=== PATIENT | female | born 1950 | race African-American/Black ===

== ENCOUNTER 2023-04-27 21:34 | Inpatient (IN) | payer MEDICARE, MEDICAID ==
[~2023-04-27] VITALS: Ht 172.7 cm; Wt 110.2 kg
[2023-04-27] MEDS ORDERED: IV NORMAL SALINE 1000 ML BAG IV ONE (22:30)
[2023-04-27] MEDS ORDERED: VANCOMYCIN IV 1,000 MG in IV DEXTROSE 5% 250 ML IV ONE (22:30)
[2023-04-27 23:07] LABS: ETHANOL < 3 MG/DL (0-10)
[2023-04-27 23:10] LABS: AMMONIA < 10 umol/L (11-32)
[2023-04-27 23:11] LABS: BASOPHILS # (AUTO) 0.3 K/UL (0.0-0.2); BASOPHILS % (AUTO) 0.8 % (0.0-2.0); HEMATOCRIT 33.3 % (31.2-41.9); HEMOGLOBIN 10.7 g/dL (10.9-14.3); LYMPHOCYTES # (AUTO) 0.6 K/uL (0.8-4.8); LYMPHOCYTES % (AUTO) 1.7 % (20.5-51.5); MEAN CORPUSCULAR HGB CONC 32 g/dL (32.3-35.6); MEAN CORPUSCULAR VOLUME 74.5 fL (75.5-95.3); MONOCYTES # (AUTO) 0.5 K/uL (0.1-1.30); MONOCYTES % (AUTO) 1.7 % (0.0-11.0); NEUTROPHILS # (AUTO) 30.8 K/uL (1.8-8.9); NEUTROPHILS % (AUTO) 95.8 % (38.5-71.5); PLATELET COUNT (AUTO) 478 K/uL (179-408); RED BLOOD CELL COUNT(AUTO) 4.47 MIL/uL (3.63-4.92); RED CELL DISTRIBUTION WIDTH 17.8 % (12.3-17.7)
[2023-04-27 23:14] LABS: DIFFERENTIAL COMMENT 1; WHITE BLOOD COUNT (AUTO) 32.2 K/uL (3.8-11.8)
[2023-04-27 23:16] LABS: CALCIUM 8.9 mg/dL (8.5-10.1); CARBON DIOXIDE 17 mmol/L (21-32); CHLORIDE 102 mmol/L (98-107); CREATININE 1.7 mg/dL (0.6-1.3); GLUCOSE 138 mg/dL (74-106); POTASSIUM 4.5 mmol/L (3.5-5.1); SODIUM SERUM 133 mmol/L (136-145); UREA NITROGEN, BLOOD 21 mg/dL (7-18)
[2023-04-27 23:21] LABS: THYROID STIMULATING HORMONE 0.566 mIU/mL (0.358-3.740)
[2023-04-27 23:24] LABS: ALANINE AMINOTRANSFERASE 8 U/L (14-59); ALBUMIN 2.4 g/dL (3.4-5.0); ALKALINE PHOSPHATASE 89 U/L (50-136); ASPARTATE AMINOTRANSFERASE 15 U/L (15-37); BILIRUBIN,DIRECT 0.3 mg/dL (0.0-0.2); BILIRUBIN,TOTAL 0.7 mg/dL (0.2-1.0); TOTAL PROTEIN, SERUM 8.3 g/dL (6.4-8.2)
[2023-04-27 23:25] LABS: ACETAMINOPHEN < 2.0 ug/mL (10-30)
[2023-04-27] MEDS ORDERED: VANCOMYCIN IV 200 ML ONE (23:38)
[2023-04-28] MEDS ORDERED: IV NORMAL SALINE 1000 ML BAG IV ONE (01:00)
[2023-04-28] MEDS ORDERED: CEFTRIAXONE 1 G in IV DEXTROSE 5% 50 ML IV ONE (01:00)
[2023-04-28 01:13] LABS: BAND % (MANUAL) 3 % (0-10); LYMPHOCYTES % (MANUAL) 5 % (20-40); MONOCYTES % (MANUAL) 2 % (2-10); NEUTROPHILS % (MANUAL) 90 % (42-75)
[2023-04-28 01:14] LABS: ANISOCYTOSIS 1+; PLATELET ESTIMATE INCREASED
[2023-04-28] MEDS ORDERED: ONDANSETRON 4 MG/2 ML VIAL IV PRN (01:15)
[2023-04-28] MEDS ORDERED: hydrALAZINE HCL 20 MG/1 ML VIAL IV PRN (01:15)
[2023-04-28 01:49] LABS: *BLOOD, URINE 2+ (NEGATIVE); *COLOR,URINE YELLOW (YELLOW); *KETONES,URINE 2+ (NEGATIVE); *PROTEIN,URINE 2+ (NEGATIVE); LEUKOCYTE ESTERASE ,URINE 1+ (NEGATIVE); NITRITE, URINE NEGATIVE (NEGATIVE); PH,URINE 5.5 (5.0-8.0); UGLUCOSE NEGATIVE (NEGATIVE)
[2023-04-28] MEDS ORDERED: CEFTRIAXONE /D5W 50ML IVPB **ER PYXIS IV ONE (02:09)
[2023-04-28 02:12] LABS: *BILIRUBIN,URIN 2+ (NEGATIVE); *CLARITY,URINE HAZY (CLEAR)
[2023-04-28 02:14] LABS: BACTERIA,URINE FEW /HPF (NONE SEEN); SQUAMOUS EPITHELIAL CELL,UR FEW /HPF (NONE SEEN)
[2023-04-28 02:18] LABS: *AMPHETAMINE, URINE NEGATIVE (NEGATIVE); *BARBITURATE, URINE NEGATIVE (NEGATIVE); *BENZODIAZEPINE, URINE NEGATIVE (NEGATIVE); *CANNABINOID, URINE NEGATIVE (NEGATIVE); *COCCAINE, URINE NEGATIVE (NEGATIVE); *OPIATE, URINE NEGATIVE (NEGATIVE); *PHENCYCLIDINE SCREEN,URINE NEGATIVE (NEGATIVE)
[2023-04-28 02:19] LABS: FENTANYL, URINE NEGATIVE (NEGATIVE)
[2023-04-28] MEDS: IV NS 1000 ML 1,000 ML IV SCH ×3 (03:00→22:00)
[2023-04-28 04:00] VITALS: BP 129/85; TEMP 98.4; O2SAT 94
[2023-04-28] MEDS: ACETAMINOPHEN 325 MG TABLET PO PRN (08:38)
[2023-04-28] MEDS: HEPARIN SODIUM,PORCINE 5,000 UNITS/ML VIAL SQ SCH ×2 (08:39→20:54)
[2023-04-28] MEDS ORDERED: CEFEPIME HCL 2 G in IV DEXTROSE 5% 100 ML IV SCH (09:00)
[2023-04-28 09:04] LABS: CALCIUM 8.5 mg/dL (8.5-10.1); CARBON DIOXIDE 20 mmol/L (21-32); CHLORIDE 106 mmol/L (98-107); CREATININE 1.6 mg/dL (0.6-1.3); GLUCOSE 122 mg/dL (74-106); SODIUM SERUM 138 mmol/L (136-145); UREA NITROGEN, BLOOD 22 mg/dL (7-18)
[2023-04-28 10:10] LABS: VANCOMYCIN,RANDOM < 0.8 ug/mL (20.0-30.0)
[2023-04-28 10:33] LABS: BASOPHILS # (AUTO) 0.1 K/UL (0.0-0.2); BASOPHILS % (AUTO) 0.4 % (0.0-2.0); HEMATOCRIT 29.1 % (31.2-41.9); HEMOGLOBIN 9.4 g/dL (10.9-14.3); LYMPHOCYTES # (AUTO) 0.9 K/uL (0.8-4.8); LYMPHOCYTES % (AUTO) 3.9 % (20.5-51.5); MEAN CORPUSCULAR HEMOGLOBIN 23.9 uug (24.7-32.8); MEAN CORPUSCULAR HGB CONC 32 g/dL (32.3-35.6); MEAN CORPUSCULAR VOLUME 74.3 fL (75.5-95.3); MONOCYTES # (AUTO) 0.9 K/uL (0.1-1.30); NEUTROPHILS # (AUTO) 21.6 K/uL (1.8-8.9); NEUTROPHILS % (AUTO) 91.7 % (38.5-71.5); PLATELET COUNT (AUTO) 369 K/uL (179-408); RED BLOOD CELL COUNT(AUTO) 3.92 MIL/uL (3.63-4.92); RED CELL DISTRIBUTION WIDTH 18.1 % (12.3-17.7); WHITE BLOOD COUNT (AUTO) 23.5 K/uL (3.8-11.8)
[2023-04-28] MEDS ORDERED: REMEDY ESSENTIAL ZINC PASTE 113 GM TOP PRN (11:00)
[2023-04-28 11:22] LABS: DIFFERENTIAL COMMENT 1
[2023-04-28] MEDS: VITAMINS A AND D OINT 42 GM TUBE TP SCH (11:48)
[2023-04-28 11:58] VITALS: BP 98/53; TEMP 99; O2SAT 99
[2023-04-28] MEDS ORDERED: VANCOMYCIN IV 1,250 MG in IV DEXTROSE 5% 250 ML IV SCH (14:00)
[2023-04-28 15:54] VITALS: BP 127/64; TEMP 99.1; O2SAT 97
[2023-04-28 16:18] LABS: BAND % (MANUAL) 3 % (0-10)
[2023-04-28 16:19] LABS: MONOCYTES % (MANUAL) 3 % (2-10)
[2023-04-28 16:20] LABS: LYMPHOCYTES % (MANUAL) 6 % (20-40); NEUTROPHILS % (MANUAL) 88 % (42-75)
[2023-04-28 16:21] LABS: PLATELET ESTIMATE ADEQUATE
[2023-04-28] MEDS: CLOTRIMAZOLE 1% CREAM 30 GM TUBE TOP SCH (17:09)
[2023-04-28 19:25] VITALS: BP 117/55; TEMP 97.4; O2SAT 98
[2023-04-28] MEDS: NYSTATIN POWDER 15 GM BOTTLE TOP SCH (20:54)
[2023-04-28] MEDS: REMEDY ESSENTIAL ZINC PASTE 113 GM TOP SCH (20:55)
[2023-04-28] MEDS: MORPHINE SULFATE 2 MG/1 ML DISP.SYRIN IVP PRN (20:59)
[2023-04-29 00:10] VITALS: BP 102/54; TEMP 97.6; O2SAT 92
[2023-04-29] MEDS: IV NS 1000 ML 1,000 ML IV SCH ×2 (02:08→15:16)
[2023-04-29] MEDS: MORPHINE SULFATE 2 MG/1 ML DISP.SYRIN IVP PRN ×2 (04:04→20:11)
[2023-04-29 04:05] VITALS: BP 110/56; TEMP 98.3; O2SAT 94
[2023-04-29 06:14] LABS: BASOPHILS # (AUTO) 0.1 K/UL (0.0-0.2); BASOPHILS % (AUTO) 0.7 % (0.0-2.0); EOSINOPHILS # (AUTO) 0.1 K/uL (0.0-0.7); EOSINOPHILS % (AUTO) 0.4 % (0.0-7.0); HEMATOCRIT 26.1 % (31.2-41.9); HEMOGLOBIN 8.4 g/dL (10.9-14.3); LYMPHOCYTES # (AUTO) 1.1 K/uL (0.8-4.8); LYMPHOCYTES % (AUTO) 5.5 % (20.5-51.5); MEAN CORPUSCULAR HEMOGLOBIN 24.1 uug (24.7-32.8); MEAN CORPUSCULAR HGB CONC 32 g/dL (32.3-35.6); MEAN CORPUSCULAR VOLUME 74.6 fL (75.5-95.3); MONOCYTES # (AUTO) 0.9 K/uL (0.1-1.30); MONOCYTES % (AUTO) 4.7 % (0.0-11.0); NEUTROPHILS % (AUTO) 88.7 % (38.5-71.5); PLATELET COUNT (AUTO) 306 K/uL (179-408); WHITE BLOOD COUNT (AUTO) 19.1 K/uL (3.8-11.8)
[2023-04-29 06:17] LABS: DIFFERENTIAL COMMENT 1
[2023-04-29 06:25] LABS: BAND % (MANUAL) 2 % (0-10)
[2023-04-29 06:26] LABS: LYMPHOCYTES % (MANUAL) 6 % (20-40); MONOCYTES % (MANUAL) 4 % (2-10); NEUTROPHILS % (MANUAL) 88 % (42-75); PLATELET ESTIMATE ADEQUATE
[2023-04-29 06:47] LABS: ALBUMIN 1.6 g/dL (3.4-5.0); BILIRUBIN,TOTAL 0.2 mg/dL (0.2-1.0); CALCIUM 8.2 mg/dL (8.5-10.1); CREATININE 1.3 mg/dL (0.6-1.3); PHOSPHOROUS 2.6 mg/dL (2.5-4.9); POTASSIUM 4.1 mmol/L (3.5-5.1); TOTAL PROTEIN, SERUM 6.1 g/dL (6.4-8.2)
[2023-04-29 08:00] VITALS: BP 97/56; TEMP 97.5; O2SAT 94
[2023-04-29] MEDS: CEFEPIME HCL 2 G in IV DEXTROSE 5% 100 ML IV SCH (08:44)
[2023-04-29] MEDS: HEPARIN SODIUM,PORCINE 5,000 UNITS/ML VIAL SQ SCH ×2 (08:49→20:09)
[2023-04-29] MEDS: CLOTRIMAZOLE 1% CREAM 30 GM TUBE TOP SCH ×2 (08:54→17:35)
[2023-04-29] MEDS: REMEDY ESSENTIAL ZINC PASTE 113 GM TOP SCH ×2 (08:54→20:21)
[2023-04-29] MEDS: NYSTATIN POWDER 15 GM BOTTLE TOP SCH ×2 (08:54→20:21)
[2023-04-29] MEDS: VITAMINS A AND D OINT 42 GM TUBE TP SCH (08:54)
[2023-04-29] MEDS: SILVER SULFADIAZINE 1% CREAM 50 GM TP SCH (08:55)
[2023-04-29] MEDS: VANCOMYCIN IV 1,500 MG in IV DEXTROSE 5% 500 ML IV SCH (09:13)
[2023-04-29 11:38] VITALS: BP 96/51; TEMP 97.8; O2SAT 95
[2023-04-29 15:29] VITALS: BP 104/59; TEMP 97.8; O2SAT 100
[2023-04-29 19:30] VITALS: BP 95/54; TEMP 97.3; O2SAT 100
[2023-04-30 00:22] VITALS: BP 125/49; TEMP 98; O2SAT 100
[2023-04-30 01:41] VITALS: BP 120/50; TEMP 98.2; O2SAT 100
[2023-04-30 05:48] VITALS: BP 89/53; TEMP 98; O2SAT 100
[2023-04-30] MEDS: VANCOMYCIN IV 1,500 MG in IV DEXTROSE 5% 500 ML IV SCH (06:49)
[2023-04-30 08:30] VITALS: BP 108/57; TEMP 98; O2SAT 100
[2023-04-30] MEDS: HEPARIN SODIUM,PORCINE 5,000 UNITS/ML VIAL SQ SCH ×2 (08:37→20:56)
[2023-04-30] MEDS: NYSTATIN POWDER 15 GM BOTTLE TOP SCH ×2 (08:39→21:41)
[2023-04-30] MEDS: CLOTRIMAZOLE 1% CREAM 30 GM TUBE TOP SCH ×2 (08:39→17:05)
[2023-04-30] MEDS: CEFEPIME HCL 2 G in IV DEXTROSE 5% 100 ML IV SCH (08:39)
[2023-04-30] MEDS: SILVER SULFADIAZINE 1% CREAM 50 GM TP SCH (08:39)
[2023-04-30] MEDS: VITAMINS A AND D OINT 42 GM TUBE TP SCH (08:40)
[2023-04-30] MEDS: REMEDY ESSENTIAL ZINC PASTE 113 GM TOP SCH ×2 (08:56→21:41)
[2023-04-30 10:17] LABS: POTASSIUM 3.8 mmol/L (3.5-5.1)
[2023-04-30 10:31] LABS: BASOPHILS # (AUTO) 0.1 K/UL (0.0-0.2); BASOPHILS % (AUTO) 0.9 % (0.0-2.0); EOSINOPHILS # (AUTO) 0.1 K/uL (0.0-0.7); EOSINOPHILS % (AUTO) 1.3 % (0.0-7.0); HEMATOCRIT 22.7 % (31.2-41.9); LYMPHOCYTES # (AUTO) 0.9 K/uL (0.8-4.8); LYMPHOCYTES % (AUTO) 9.9 % (20.5-51.5); MEAN CORPUSCULAR HEMOGLOBIN 24.2 uug (24.7-32.8); MEAN CORPUSCULAR HGB CONC 31 g/dL (32.3-35.6); MEAN CORPUSCULAR VOLUME 77.3 fL (75.5-95.3); MONOCYTES # (AUTO) 0.4 K/uL (0.1-1.30); MONOCYTES % (AUTO) 4.6 % (0.0-11.0); NEUTROPHILS # (AUTO) 7.3 K/uL (1.8-8.9); NEUTROPHILS % (AUTO) 83.3 % (38.5-71.5); PLATELET COUNT (AUTO) 267 K/uL (179-408); RED BLOOD CELL COUNT(AUTO) 2.94 MIL/uL (3.63-4.92); WHITE BLOOD COUNT (AUTO) 8.7 K/uL (3.8-11.8)
[2023-04-30 10:33] LABS: DIFFERENTIAL COMMENT 1; HEMOGLOBIN 7.1 g/dL (10.9-14.3)
[2023-04-30 11:56] VITALS: BP 109/63; TEMP 97.7; O2SAT 98
[2023-04-30 16:00] VITALS: BP 111/59; TEMP 97.6; O2SAT 98
[2023-04-30 19:17] LABS: HEMATOCRIT 28.1 % (31.2-41.9); HEMOGLOBIN 9.1 g/dL (10.9-14.3)
[2023-04-30] MEDS ORDERED: VANCOMYCIN IV 1,500 MG in IV DEXTROSE 5% 500 ML IV SCH (21:00)
[2023-04-30] MEDS ORDERED: VANCOMYCIN 1000 MG VIAL ONE (21:09)
[2023-04-30] MEDS ORDERED: VANCOMYCIN HCL 500 MG VIAL ONE (21:10)
[2023-05-01 08:00] VITALS: BP 101/62; TEMP 98.2; O2SAT 97
[2023-05-01 08:39] LABS: MAGNESIUM 1.9 mg/dL (1.8-2.4); PHOSPHOROUS 1.9 mg/dL (2.5-4.9); POTASSIUM 4.4 mmol/L (3.5-5.1)
[2023-05-01 08:40] LABS: BASOPHILS # (AUTO) 0.1 K/UL (0.0-0.2); BASOPHILS % (AUTO) 0.9 % (0.0-2.0); DIFFERENTIAL COMMENT 0; EOSINOPHILS # (AUTO) 0.1 K/uL (0.0-0.7); EOSINOPHILS % (AUTO) 1.6 % (0.0-7.0); HEMATOCRIT 25.4 % (31.2-41.9); HEMOGLOBIN 8.3 g/dL (10.9-14.3); LYMPHOCYTES # (AUTO) 1.5 K/uL (0.8-4.8); LYMPHOCYTES % (AUTO) 17.5 % (20.5-51.5); MEAN CORPUSCULAR HEMOGLOBIN 24.1 uug (24.7-32.8); MEAN CORPUSCULAR HGB CONC 33 g/dL (32.3-35.6); MEAN CORPUSCULAR VOLUME 73.7 fL (75.5-95.3); MONOCYTES # (AUTO) 0.5 K/uL (0.1-1.30); MONOCYTES % (AUTO) 6.1 % (0.0-11.0); NEUTROPHILS # (AUTO) 6.4 K/uL (1.8-8.9); NEUTROPHILS % (AUTO) 73.9 % (38.5-71.5); PLATELET COUNT (AUTO) 299 K/uL (179-408); RED BLOOD CELL COUNT(AUTO) 3.44 MIL/uL (3.63-4.92); WHITE BLOOD COUNT (AUTO) 8.6 K/uL (3.8-11.8)
[2023-05-01] MEDS: CEFEPIME HCL 2 G in IV DEXTROSE 5% 100 ML IV SCH (09:17)
[2023-05-01] MEDS: CLOTRIMAZOLE 1% CREAM 30 GM TUBE TOP SCH ×2 (09:18→16:33)
[2023-05-01] MEDS: NYSTATIN POWDER 15 GM BOTTLE TOP SCH ×2 (09:19→21:29)
[2023-05-01] MEDS: SILVER SULFADIAZINE 1% CREAM 50 GM TP SCH (09:19)
[2023-05-01] MEDS: REMEDY ESSENTIAL ZINC PASTE 113 GM TOP SCH ×2 (09:19→21:29)
[2023-05-01] MEDS: VITAMINS A AND D OINT 42 GM TUBE TP SCH (09:20)
[2023-05-01] MEDS: ACETAMINOPHEN 325 MG TABLET PO PRN ×2 (09:20→21:28)
[2023-05-01] MEDS: HEPARIN SODIUM,PORCINE 5,000 UNITS/ML VIAL SQ SCH ×2 (09:39→21:32)
[2023-05-01 16:00] VITALS: BP 100/60; TEMP 98; O2SAT 98
[2023-05-01] MEDS ORDERED: NEUTRA PHOS PACKET PO ONE (16:00)
[2023-05-01] MEDS ORDERED: CIPR500T5 PO (19:33)
[2023-05-01 20:00] VITALS: BP 98/54; TEMP 97.8
[2023-05-01] MEDS ORDERED: CIPROFLOXACIN HCL 250 MG TABLET ONE (21:37)
[2023-05-01] MEDS: CIPROFLOXACIN HCL 250 MG TABLET PO SCH (21:50)
[2023-05-02 08:36] LABS: BASOPHILS # (AUTO) 0.1 K/UL (0.0-0.2); DIFFERENTIAL COMMENT 0; EOSINOPHILS # (AUTO) 0.2 K/uL (0.0-0.7); HEMOGLOBIN 8.8 g/dL (10.9-14.3); LYMPHOCYTES # (AUTO) 1.7 K/uL (0.8-4.8); MONOCYTES # (AUTO) 0.6 K/uL (0.1-1.30)
[2023-05-02 08:40] LABS: CALCIUM 8.4 mg/dL (8.5-10.1); CREATININE 0.9 mg/dL (0.6-1.3); PHOSPHOROUS 2.5 mg/dL (2.5-4.9); POTASSIUM 4.4 mmol/L (3.5-5.1); VANCOMYCIN,RANDOM 19.4 ug/mL (20.0-30.0)
[2023-05-02 08:45] LABS: EOSINOPHILS % (AUTO) 2.4 % (0.0-7.0); HEMATOCRIT 27.1 % (31.2-41.9); LYMPHOCYTES % (AUTO) 20.3 % (20.5-51.5); MEAN CORPUSCULAR HGB CONC 33 g/dL (32.3-35.6); MEAN CORPUSCULAR VOLUME 73.5 fL (75.5-95.3); MONOCYTES % (AUTO) 7.2 % (0.0-11.0); NEUTROPHILS # (AUTO) 5.6 K/uL (1.8-8.9); NEUTROPHILS % (AUTO) 69.1 % (38.5-71.5); PLATELET COUNT (AUTO) 342 K/uL (179-408); RED BLOOD CELL COUNT(AUTO) 3.68 MIL/uL (3.63-4.92); RED CELL DISTRIBUTION WIDTH 18.4 % (12.3-17.7); WHITE BLOOD COUNT (AUTO) 8.2 K/uL (3.8-11.8)
[2023-05-02] MEDS: CIPROFLOXACIN HCL 250 MG TABLET PO SCH (08:51)
[2023-05-02] MEDS: HEPARIN SODIUM,PORCINE 5,000 UNITS/ML VIAL SQ SCH (08:54)
[2023-05-02] MEDS: REMEDY ESSENTIAL ZINC PASTE 113 GM TOP SCH (09:02)
[2023-05-02] MEDS: NYSTATIN POWDER 15 GM BOTTLE TOP SCH (09:02)
[2023-05-02] MEDS: CLOTRIMAZOLE 1% CREAM 30 GM TUBE TOP SCH ×2 (09:02→17:31)
[2023-05-02] MEDS: SILVER SULFADIAZINE 1% CREAM 50 GM TP SCH (09:02)
[2023-05-02] MEDS: VITAMINS A AND D OINT 42 GM TUBE TP SCH (09:02)
[2023-05-02 11:19] VITALS: BP 110/59; TEMP 97.7; O2SAT 100
[2023-05-02 15:21] VITALS: BP 110/59; TEMP 97.6; O2SAT 98
[2023-05-02 19:55] VITALS: BP 125/78; TEMP 97.6; O2SAT 97
[2023-05-02] MEDS: MEROPENEM 1 G in IV NORMAL SALINE 100 ML IV SCH (23:46)
[2023-05-03] MEDS: HEPARIN SODIUM,PORCINE 5,000 UNITS/ML VIAL SQ SCH ×2 (00:10→09:34)
[2023-05-03] MEDS: NYSTATIN POWDER 15 GM BOTTLE TOP SCH ×2 (00:12→09:37)
[2023-05-03] MEDS: REMEDY ESSENTIAL ZINC PASTE 113 GM TOP SCH ×2 (00:12→09:38)
[2023-05-03 06:21] VITALS: BP 113/56; TEMP 98.8; O2SAT 95
[2023-05-03] MEDS: MEROPENEM 1 G in IV NORMAL SALINE 100 ML IV SCH (09:36)
[2023-05-03] MEDS: CLOTRIMAZOLE 1% CREAM 30 GM TUBE TOP SCH (09:37)
[2023-05-03] MEDS: SILVER SULFADIAZINE 1% CREAM 50 GM TP SCH (09:38)
[2023-05-03] MEDS: VITAMINS A AND D OINT 42 GM TUBE TP SCH (09:39)
[2023-05-03] MEDS ORDERED: CIPR-262 PO (10:54)
[2023-05-03] MEDS ORDERED: ERTA1VIA4 IV (11:03)
[2023-05-03 11:39] VITALS: BP 129/73; TEMP 97.7; O2SAT 97
[2023-05-03 15:38] VITALS: BP 118/73; TEMP 98; O2SAT 98
== END 2023-05-03 17:11 | DRG 871 ==
LOC: ER 21:35 → TELE3 04-28 01:06 → MEDSURG3 04-29 07:55 → MED 04-29 21:41 → MEDSURG3 05-01 18:15 → MED 05-02 19:16
PROVIDERS: ADMIT Internal Medicine; ATTEND Nurse Practitioner Acute Care
DX: A41.50 Gram-negative sepsis, unspecified (principal); G93.41 Metabolic encephalopathy; N17.0 Acute kidney failure with tubular necrosis; N39.0 Urinary tract infection, site not specified; E44.0 Moderate protein-calorie malnutrition; Z16.24 Resistance to multiple antibiotics; E87.1 Hypo-osmolality and hyponatremia; I87.313 Chronic venous hypertension (idiopathic) with ulcer of bilateral lower extremity; L97.222 Non-pressure chronic ulcer of left calf with fat layer exposed; L97.212 Non-pressure chronic ulcer of right calf with fat layer exposed; E86.0 Dehydration; E66.01 Morbid (severe) obesity due to excess calories; Z68.37 Body mass index [BMI] 37.0-37.9, adult; E87.8 Other disorders of electrolyte and fluid balance, not elsewhere classified; E88.09 Other disorders of plasma-protein metabolism, not elsewhere classified; I89.0 Lymphedema, not elsewhere classified; Z74.09 Other reduced mobility; D50.9 Iron deficiency anemia, unspecified; Z90.710 Acquired absence of both cervix and uterus; R32 Unspecified urinary incontinence; R00.0 Tachycardia, unspecified
CPT/HCPCS: 36415; 70030-TC; 70450; 71045; 83550; 83605; 83735; 84100; 84443; 84484; 85018; 85025; 85730; 87040; 93005; 93307; A4606; A4663; G0378; G0480; J0692; J0696; J1644; J2185; J2270; J3370; J7040; J7050; J7060

== ENCOUNTER 2024-10-06 11:15 | Inpatient (IN) | payer MEDICARE, OTHER ==
[~2024-10-06] VITALS: Ht 167.6 cm; Wt 95.7 kg
[~2024-10-06 11:15] MED LIST: ERTA1VIA4 IV
[2024-10-06] MEDS: IV NORMAL SALINE 1000 ML BAG IV ONE (12:05)
[2024-10-06 13:10] LABS: BASOPHILS % (AUTO) 0.1 % (0.0-2.0); EOSINOPHILS # (AUTO) 0.7 K/uL (0.0-0.7); EOSINOPHILS % (AUTO) 2.1 % (0.0-7.0); HEMATOCRIT 33.4 % (31.2-41.9); HEMOGLOBIN 10.7 g/dL (10.9-14.3); LYMPHOCYTES # (AUTO) 6.2 K/uL (0.8-4.8); LYMPHOCYTES % (AUTO) 18.4 % (20.5-51.5); MEAN CORPUSCULAR HEMOGLOBIN 26.7 uug (24.7-32.8); MEAN CORPUSCULAR HGB CONC 32 g/dL (32.3-35.6); MEAN CORPUSCULAR VOLUME 83.2 fL (75.5-95.3); MONOCYTES # (AUTO) 0.5 K/uL (0.1-1.30); MONOCYTES % (AUTO) 1.4 % (0.0-11.0); NEUTROPHILS # (AUTO) 26.2 K/uL (1.8-8.9); PLATELET COUNT (AUTO) 216 K/uL (179-408); RED BLOOD CELL COUNT(AUTO) 4.02 MIL/uL (3.63-4.92); RED CELL DISTRIBUTION WIDTH 20.2 % (12.3-17.7)
[2024-10-06 13:20] LABS: AMMONIA 21 umol/L (11-32)
[2024-10-06 13:21] LABS: COHb 0.3 % (0.5-1.5)
[2024-10-06 13:25] LABS: ALANINE AMINOTRANSFERASE 8 U/L (14-59); ALKALINE PHOSPHATASE 252 U/L (50-136); ASPARTATE AMINOTRANSFERASE 38 U/L (15-37); BILIRUBIN,DIRECT 0.6 mg/dL (0.0-0.2); BILIRUBIN,TOTAL 1.3 mg/dL (0.2-1.0); CALCIUM 8.5 mg/dL (8.5-10.1); CARBON DIOXIDE 18 mmol/L (21-32); CHLORIDE 104 mmol/L (98-107); CREATININE 2.6 mg/dL (0.6-1.3); GLUCOSE 97 mg/dL (74-106); LIPASE < 10 U/L (16-77); POTASSIUM 4.2 mmol/L (3.5-5.1); SODIUM SERUM 137 mmol/L (136-145); TOTAL PROTEIN, SERUM 5.8 g/dL (6.4-8.2); UREA NITROGEN, BLOOD 26 mg/dL (7-18)
[2024-10-06 13:33] LABS: ALBUMIN 1.2 g/dL (3.4-5.0); DIFFERENTIAL COMMENT 1; WHITE BLOOD COUNT (AUTO) 33.7 K/uL (3.8-11.8)
[2024-10-06] MEDS ORDERED: PIPERACILLIN/TAZOBACTAM/D5W 50 ML IV ONE ×2 (13:37→20:37)
[2024-10-06] MEDS: PIPERACILLIN SODIUM/TAZOBACTAM 3.375 G in IV DEXTROSE 5% 50 ML IV ONE (13:41)
[2024-10-06] MEDS: IV NS 1000 ML 1,000 ML IV ONE ×3 (13:55→16:47)
[2024-10-06] MEDS: VANCOMYCIN IV 750 MG in IV DEXTROSE 5% 150 ML IV ONE (13:55)
[2024-10-06 14:09] LABS: BAND % (MANUAL) 1 % (0-10); LYMPHOCYTES % (MANUAL) 1 % (20-40); MONOCYTES % (MANUAL) 3 % (2-10); NEUTROPHILS % (MANUAL) 95 % (42-75)
[2024-10-06 14:10] LABS: ANISOCYTOSIS 2+; PLATELET ESTIMATE ADEQUATE
[2024-10-06] MEDS ORDERED: LIDO30AD10 TD (14:13)
[2024-10-06] MEDS ORDERED: ZINC SULFATE PO (14:13)
[2024-10-06] MEDS ORDERED: FAMO20TA8 PO (14:13)
[2024-10-06] MEDS ORDERED: BETADINE TOP (14:13)
[2024-10-06] MEDS ORDERED: MULT-213 PO (14:13)
[2024-10-06] MEDS ORDERED: FERR-56 PO (14:13)
[2024-10-06] MEDS ORDERED: SIME80TA15 PO (14:13)
[2024-10-06] MEDS ORDERED: POLY119P2 PO (14:13)
[2024-10-06] MEDS ORDERED: ASCO500C18 PO (14:13)
[2024-10-06] MEDS ORDERED: BENZ-13 PO (14:13)
[2024-10-06] MEDS ORDERED: HYDR170P TP (14:13)
[2024-10-06] MEDS ORDERED: MAGN400O6 PO (14:13)
[2024-10-06] MEDS ORDERED: IPRA3AMP23 NEB (14:13)
[2024-10-06] MEDS ORDERED: MIRT-121 PO (14:13)
[2024-10-06] MEDS ORDERED: ACET-2154 PO (14:13)
[2024-10-06] MEDS ORDERED: VOLTAREN GEL 1% TOP (14:13)
[2024-10-06] MEDS ORDERED: LOPE2TAB25 PO (14:13)
[2024-10-06] MEDS ORDERED: ACET-2605 PO (14:13)
[2024-10-06] MEDS ORDERED: NA P133E RC (14:13)
[2024-10-06] MEDS ORDERED: GUAI-1189 PO (14:13)
[2024-10-06] MEDS ORDERED: HYDR-4209 PO (14:13)
[2024-10-06] MEDS ORDERED: ETOMIDATE 20 MG/10 ML VIAL ONE (17:00)
[2024-10-06] MEDS ORDERED: NOREPINEPHRINE 8MG/NS 250ML 250 ML IV ONE (17:22)
[2024-10-06] MEDS ORDERED: MAGNESIUM HYDROXIDE 30 ML LIQUID UDC PO PRN (17:30)
[2024-10-06] MEDS ORDERED: ONDANSETRON 4 MG/2 ML VIAL IV PRN (17:30)
[2024-10-06] MEDS ORDERED: NOREPINEPHRINE 8MG/NS 250ML 250 ML IV PRN (17:30)
[2024-10-06] MEDS: PIPERACILLIN SODIUM/TAZOBACTAM 3.375 G in IV DEXTROSE 5% 50 ML IV SCH (18:00)
[2024-10-06] MEDS ORDERED: FENTANYL CITRATE 100 MCG/2 ML AMPUL ONE (18:13)
[2024-10-06] MEDS ORDERED: MORPHINE SULFATE 4 MG/1 ML DISP.SYRIN ONE (18:14)
[2024-10-06] MEDS ORDERED: ALBUMIN HUMAN 5% 250 ML ONE ×2 (18:15→19:39)
[2024-10-06] MEDS ORDERED: MIDAZOLAM HCL 2 MG/2 ML VIAL ONE (18:15)
[2024-10-06] MEDS ORDERED: ROCURONIUM BROMIDE 50 MG/5 ML VIAL ONE (18:57)
[2024-10-06] MEDS: PIPERACILLIN/TAZO 2.25 G in IV DEXTROSE 5% 50 ML IV SCH (19:00)
[2024-10-06] MEDS ORDERED: OXYMETAZOLINE NASAL 0.05% 15 ML SPRAY NS ONE (19:06)
[2024-10-06] MEDS ORDERED: INSULIN REGULAR, HUMAN 1000 UNIT/10 ML VIAL SQ PRN (19:15)
[2024-10-06] MEDS: ALBUMIN HUMAN 25% 50 ML IV ONE (19:30)
[2024-10-06] MEDS ORDERED: MIDAZOLAM HCL 10 MG/2 ML VIAL ONE (20:09)
[2024-10-06] MEDS ORDERED: FENTANYL CITRATE 250 MCG/5 ML AMPUL ONE (20:09)
[2024-10-06] MEDS ORDERED: PIPERACILLIN SODIUM/TAZOBACTAM 3.375 G in IV DEXTROSE 5% 50 ML IV SCH (20:30)
[2024-10-06 20:31] LABS: ABG BASE EXCESS -7.5 mmol/L (-2.0-3.0); ABG HCO3 16.8 mmol/L (21.0-28.0); ABG PH 7.367 (7.350-7.450); ABG PO2 324.3 mmHg (83.0-108.0); ABG SITE ALINE; ABG TOTAL HEMOGLOBIN 9.7 G/dL (12.0-16.0); AaDO2 99.7 mmHg; MetHb 0.1 % (0.0-1.5); VT, ABG 400 mL
[2024-10-06] MEDS: SODIUM BICARBONATE 8.4% 50 MEQ/50 ML DISP.SYRIN IV ONE ×2 (21:00→22:50)
[2024-10-06 22:30] VITALS: BP 136/62; TEMP 97.2; O2SAT 99
[2024-10-06 22:45] VITALS: BP 96/71; O2SAT 98
[2024-10-06] MEDS: NOREPINEPHRINE 8MG/NS 250ML 250 ML IV PRN (22:48)
[2024-10-06] MEDS: BLOOD SUGAR DIAGNOSTIC 1 EACH STRIP VI SCH (22:49)
[2024-10-06] MEDS: PROPOFOL 100 ML IV PRN (22:50)
[2024-10-06 23:00] VITALS: BP 93/57; O2SAT 98
[2024-10-06 23:15] VITALS: BP 103/69; O2SAT 97
[2024-10-06 23:30] VITALS: BP 102/77; O2SAT 99
[2024-10-06 23:45] VITALS: BP 121/54; O2SAT 98
[2024-10-07] VITALS (99 sets, daily range): BP systolic 66–144; BP diastolic 34–82; TEMP 97.3–100.8; O2SAT 93–99
[2024-10-07] MEDS ORDERED: PIPERACILLIN/TAZOBACTAM/D5W 0 ML IV ONE (01:00)
[2024-10-07] MEDS ORDERED: PIPERACILLIN/TAZOBACTAM/D5W 50 ML ONE (01:04)
[2024-10-07 01:52] LABS: CALCIUM 6.5 mg/dL (8.5-10.1); CARBON DIOXIDE 20 mmol/L (21-32); CHLORIDE 109 mmol/L (98-107); CREATININE 2.2 mg/dL (0.6-1.3); GLUCOSE 103 mg/dL (74-106); MAGNESIUM 1.3 mg/dL (1.8-2.4); POTASSIUM 3.2 mmol/L (3.5-5.1); SODIUM SERUM 141 mmol/L (136-145); UREA NITROGEN, BLOOD 24 mg/dL (7-18)
[2024-10-07 01:53] LABS: HEMOGLOBIN 8.8 g/dL (10.9-14.3); MEAN CORPUSCULAR HGB CONC 32 g/dL (32.3-35.6); MONOCYTES # (AUTO) 0.6 K/uL (0.1-1.30)
[2024-10-07 01:55] LABS: BASOPHILS # (AUTO) 0.1 K/UL (0.0-0.2); BASOPHILS % (AUTO) 0.3 % (0.0-2.0); EOSINOPHILS # (AUTO) 2.3 K/uL (0.0-0.7); EOSINOPHILS % (AUTO) 6.3 % (0.0-7.0); HEMATOCRIT 27.2 % (31.2-41.9); LYMPHOCYTES # (AUTO) 2.4 K/uL (0.8-4.8); LYMPHOCYTES % (AUTO) 6.4 % (20.5-51.5); MEAN CORPUSCULAR HEMOGLOBIN 26.8 uug (24.7-32.8); MEAN CORPUSCULAR VOLUME 83.1 fL (75.5-95.3); MONOCYTES % (AUTO) 1.5 % (0.0-11.0); NEUTROPHILS # (AUTO) 31.9 K/uL (1.8-8.9); NEUTROPHILS % (AUTO) 85.5 % (38.5-71.5); PLATELET COUNT (AUTO) 164 K/uL (179-408); RED BLOOD CELL COUNT(AUTO) 3.27 MIL/uL (3.63-4.92); RED CELL DISTRIBUTION WIDTH 20.4 % (12.3-17.7)
[2024-10-07 01:57] LABS: DIFFERENTIAL COMMENT 1; WHITE BLOOD COUNT (AUTO) 37.3 K/uL (3.8-11.8)
[2024-10-07 01:58] LABS: ANISOCYTOSIS 1+; EOSINOPHILS % (MANUAL) 6 % (0-8); LYMPHOCYTES % (MANUAL) 9 % (20-40); MONOCYTES % (MANUAL) 3 % (2-10); NEUTROPHILS % (MANUAL) 82 % (42-75); PLATELET ESTIMATE ADEQUATE
[2024-10-07] MEDS: IV NS 1000 ML 1,000 ML IV PRN (02:13)
[2024-10-07] MEDS: PIPERACILLIN/TAZO 2.25 G in IV DEXTROSE 5% 50 ML IV SCH (02:25)
[2024-10-07] MEDS: MAGNESIUM SULFATE/D5W 100 ML IV ONE (02:57)
[2024-10-07] MEDS: POTASSIUM CHLORIDE 50 ML IV ONE (03:52)
[2024-10-07] MEDS: DILTIAZEM HCL 25 MG IV IV ONE (04:28)
[2024-10-07 05:42] LABS: BASOPHILS # (AUTO) 0.1 K/UL (0.0-0.2); BASOPHILS % (AUTO) 0.1 % (0.0-2.0); EOSINOPHILS # (AUTO) 0.9 K/uL (0.0-0.7); EOSINOPHILS % (AUTO) 2.3 % (0.0-7.0); HEMATOCRIT 27.1 % (31.2-41.9); HEMOGLOBIN 8.7 g/dL (10.9-14.3); LYMPHOCYTES # (AUTO) 8.6 K/uL (0.8-4.8); LYMPHOCYTES % (AUTO) 21.6 % (20.5-51.5); MEAN CORPUSCULAR HEMOGLOBIN 26.7 uug (24.7-32.8); MEAN CORPUSCULAR HGB CONC 32 g/dL (32.3-35.6); MEAN CORPUSCULAR VOLUME 83.5 fL (75.5-95.3); MONOCYTES # (AUTO) 0.9 K/uL (0.1-1.30); MONOCYTES % (AUTO) 2.2 % (0.0-11.0); NEUTROPHILS # (AUTO) 29.4 K/uL (1.8-8.9); NEUTROPHILS % (AUTO) 73.8 % (38.5-71.5); PLATELET COUNT (AUTO) 152 K/uL (179-408); RED BLOOD CELL COUNT(AUTO) 3.24 MIL/uL (3.63-4.92); RED CELL DISTRIBUTION WIDTH 20.3 % (12.3-17.7)
[2024-10-07 05:49] LABS: DIFFERENTIAL COMMENT 1
[2024-10-07 05:53] LABS: AMMONIA 86 umol/L (11-32)
[2024-10-07 06:07] LABS: ALANINE AMINOTRANSFERASE 32 U/L (14-59); ALBUMIN 1.6 g/dL (3.4-5.0); ALKALINE PHOSPHATASE 190 U/L (50-136); ASPARTATE AMINOTRANSFERASE 79 U/L (15-37); BILIRUBIN,TOTAL 1.4 mg/dL (0.2-1.0); CARBON DIOXIDE 16 mmol/L (21-32); CHLORIDE 112 mmol/L (98-107); CREATININE 2.3 mg/dL (0.6-1.3); GLUCOSE 104 mg/dL (74-106); MAGNESIUM 1.7 mg/dL (1.8-2.4); PHOSPHOROUS 4.3 mg/dL (2.5-4.9); POTASSIUM 3.7 mmol/L (3.5-5.1); SODIUM SERUM 145 mmol/L (136-145); UREA NITROGEN, BLOOD 24 mg/dL (7-18)
[2024-10-07 06:16] LABS: ABG BASE EXCESS -9.7 mmol/L (-2.0-3.0); ABG HCO3 14.6 mmol/L (21.0-28.0); ABG PCO2 26.6 mmHg (32.0-45.0); ABG PH 7.358 (7.350-7.450); ABG PO2 112.7 mmHg (83.0-108.0); ABG SITE ALINE; ABG TOTAL HEMOGLOBIN 8.9 G/dL (12.0-16.0); AaDO2 98.1 mmHg; COHb 0.4 % (0.5-1.5); MetHb 0.2 % (0.0-1.5); O2Hb 97.4 % (94.0-98.0); VT, ABG 400 mL
[2024-10-07] MEDS: PANTOPRAZOLE SODIUM 40 MG VIAL IV SCH (08:40)
[2024-10-07] MEDS: PIPERACILLIN SODIUM/TAZOBACTAM 3.375 G in IV DEXTROSE 5% 100 ML IV SCH (08:40)
[2024-10-07] MEDS: ASCORBIC ACID 500 MG TABLET PO SCH (08:59)
[2024-10-07] MEDS: MULTIVITAMINS,THERAPEUTIC TABLET PO SCH (08:59)
[2024-10-07] MEDS ORDERED: Medication Not On Formulary EA (Multivitamins W-Minerals (Multivitamin With Minerals) 1 PO SCH (09:00)
[2024-10-07] MEDS ORDERED: Medication Not On Formulary EA (Ascorbic Acid (Vitamin C) 500 MG) PO SCH (09:00)
[2024-10-07] MEDS: NOREPINEPHRINE BITARTRATE 32 MG in IV NORMAL SALINE 218 ML IV PRN (10:08)
[2024-10-07] MEDS: MAGNESIUM SULFATE/D5W 100 ML IV SCH (10:24)
[2024-10-07] MEDS ORDERED: POVI3780 TP (11:10)
[2024-10-07] MEDS ORDERED: BISA10SU61 RC (11:12)
[2024-10-07] MEDS ORDERED: GUAI-1197 PO (11:15)
[2024-10-07] MEDS ORDERED: ACET-73 PO (11:25)
[2024-10-07] MEDS: PHENYLEPHRINE IV 100 MG in IV NORMAL SALINE 240 ML IV PRN (11:26)
[2024-10-07] MEDS: ACETAMINOPHEN 650 MG SUPP.RECT RC PRN (11:27)
[2024-10-07] MEDS ORDERED: DICL100G31 TP ×2 (11:28→11:30)
[2024-10-07] MEDS: DEXTROSE 50% 50 ML DISP.SYRIN IV PRN (11:45)
[2024-10-07] MEDS: IV D5/ 0.9% NACL 1,000 ML IV PRN (11:52)
[2024-10-07] MEDS: VANCOMYCIN HCL 750 MG in IV DEXTROSE 5% 250 ML IV ONE (11:55)
[2024-10-07] MEDS: BUMETANIDE 1 MG/4 ML VIAL IV ONE (14:14)
[2024-10-07] MEDS: IV NS 1000 ML 1,000 ML IV ONE (14:16)
[2024-10-07] MEDS: VASOPRESSIN 40 UNIT in IV NORMAL SALINE 40 ML IV PRN (14:16)
[2024-10-07] MEDS: BLOOD SUGAR DIAGNOSTIC 1 EACH STRIP VI SCH (17:05)
[2024-10-07] MEDS ORDERED: DEXTROSE 50% 50 ML DISP.SYRIN IV PRN (17:30)
[2024-10-07 19:45] LABS: CALCIUM 6.6 mg/dL (8.5-10.1); CARBON DIOXIDE 15 mmol/L (21-32); CHLORIDE 111 mmol/L (98-107); CREATININE 2.6 mg/dL (0.6-1.3); GLUCOSE 112 mg/dL (74-106); POTASSIUM 3.2 mmol/L (3.5-5.1); SODIUM SERUM 141 mmol/L (136-145); UREA NITROGEN, BLOOD 27 mg/dL (7-18)
[2024-10-07] MEDS: VASOPRESSIN 20 UNIT/ML VIAL ONE (20:16)
[2024-10-08] VITALS (96 sets, daily range): BP systolic 68–154; BP diastolic 30–62; TEMP 97.6–98.8; O2SAT 83–100
[2024-10-08 06:16] LABS: ABG BASE EXCESS -17.3 mmol/L (-2.0-3.0); ABG HCO3 8.9 mmol/L (21.0-28.0); ABG PCO2 22.5 mmHg (32.0-45.0); ABG PH 7.213 (7.350-7.450); ABG PO2 146.1 mmHg (83.0-108.0); ABG SITE ALINE; ABG TOTAL HEMOGLOBIN 7.6 G/dL (12.0-16.0); AaDO2 98.5 mmHg; COHb 0.3 % (0.5-1.5); MetHb 0.3 % (0.0-1.5); O2Hb 97.8 % (94.0-98.0); VT, ABG 400 mL
[2024-10-08] MEDS: IV NORMAL SALINE 1000 ML BAG IV ONE (06:16)
[2024-10-08 06:51] LABS: AMMONIA 100 umol/L (11-32)
[2024-10-08 07:01] LABS: ALANINE AMINOTRANSFERASE 49 U/L (14-59); ALKALINE PHOSPHATASE 189 U/L (50-136); ASPARTATE AMINOTRANSFERASE 83 U/L (15-37); BILIRUBIN,DIRECT 0.6 mg/dL (0.0-0.2); BILIRUBIN,TOTAL 0.7 mg/dL (0.2-1.0); CALCIUM 6.7 mg/dL (8.5-10.1); CHLORIDE 113 mmol/L (98-107); CHOLESTEROL 74 mg/dL (<200); CREATININE 2.8 mg/dL (0.6-1.3); GLUCOSE 154 mg/dL (74-106); HDL CHOLESTEROL 11 mg/dL (40-60); MAGNESIUM 1.9 mg/dL (1.8-2.4); PHOSPHOROUS 3.8 mg/dL (2.5-4.9); POTASSIUM 3.3 mmol/L (3.5-5.1); SODIUM SERUM 141 mmol/L (136-145); TOTAL PROTEIN, SERUM 3.7 g/dL (6.4-8.2); TRIGLYCERIDES 270 MG/DL (30-150); UREA NITROGEN, BLOOD 28 mg/dL (7-18)
[2024-10-08 07:03] LABS: THYROID STIMULATING HORMONE 2.335 mIU/mL (0.358-3.740)
[2024-10-08 07:08] LABS: LACTIC ACID 6.1 mmol/L (0.4-2.0)
[2024-10-08 07:29] LABS: CARBON DIOXIDE 10 mmol/L (21-32)
[2024-10-08] MEDS: PIPERACILLIN/TAZO 2.25 G in IV DEXTROSE 5% 50 ML IV SCH (07:50)
[2024-10-08 07:56] LABS: VANCOMYCIN,RANDOM 15.1 ug/mL (20.0-30.0)
[2024-10-08] MEDS ORDERED: SODIUM BICARBONATE 8.4% 50 MEQ in IV D5/ 0.9% NACL 1,000 ML IV PRN (08:08)
[2024-10-08 08:18] LABS: POTASSIUM 3.3 mmol/L (3.5-5.1); SODIUM SERUM 141 mmol/L (136-145)
[2024-10-08 08:19] LABS: CALCIUM 6.7 mg/dL (8.5-10.1); CARBON DIOXIDE 10 mmol/L (21-32); CHLORIDE 113 mmol/L (98-107); CREATININE 2.8 mg/dL (0.6-1.3); GLUCOSE 154 mg/dL (74-106); UREA NITROGEN, BLOOD 28 mg/dL (7-18)
[2024-10-08 08:22] LABS: WHITE BLOOD COUNT (AUTO) 38.6 K/uL (3.8-11.8)
[2024-10-08 08:23] LABS: HEMATOCRIT 23.7 % (31.2-41.9); HEMOGLOBIN 7.2 g/dL (10.9-14.3); MEAN CORPUSCULAR HEMOGLOBIN 26.2 uug (24.7-32.8); MEAN CORPUSCULAR HGB CONC 30 g/dL (32.3-35.6); MEAN CORPUSCULAR VOLUME 86.9 fL (75.5-95.3); RED BLOOD CELL COUNT(AUTO) 2.71 MIL/uL (3.63-4.92)
[2024-10-08 08:24] LABS: NEUTROPHILS % (AUTO) 92.4 % (38.5-71.5); PLATELET COUNT (AUTO) 91 K/uL (179-408); RED CELL DISTRIBUTION WIDTH 21.4 % (12.3-17.7)
[2024-10-08 08:25] LABS: BASOPHILS # (AUTO) 0.1 K/UL (0.0-0.2); BASOPHILS % (AUTO) 0.2 % (0.0-2.0); EOSINOPHILS # (AUTO) 0.4 K/uL (0.0-0.7); LYMPHOCYTES # (AUTO) 1.3 K/uL (0.8-4.8); LYMPHOCYTES % (AUTO) 3.5 % (20.5-51.5); MONOCYTES # (AUTO) 1.1 K/uL (0.1-1.30); MONOCYTES % (AUTO) 2.9 % (0.0-11.0); NEUTROPHILS # (AUTO) 35.6 K/uL (1.8-8.9)
[2024-10-08] MEDS: VANCOMYCIN HCL 750 MG in IV DEXTROSE 5% 250 ML IV ONE (08:37)
[2024-10-08] MEDS: HEPARIN SODIUM,PORCINE 5,000 UNITS/ML VIAL SQ SCH (08:47)
[2024-10-08] MEDS: HYDROCORTISONE SOD SUCCINATE 100 MG/2 ML VIAL IV SCH (08:48)
[2024-10-08] MEDS ORDERED: PIPERACILLIN SODIUM/TAZOBACTAM 3.375 G in IV DEXTROSE 5% 100 ML IV SCH (09:00)
[2024-10-08] MEDS: SODIUM BICARBONATE 8.4% 100 MEQ in IV D5W 1000ML 1,000 ML IV SCH (09:12)
[2024-10-08] MEDS: SODIUM BICARBONATE 8.4% 100 MEQ in IV D5W 1000ML 1,000 ML IV PRN (11:51)
[2024-10-08] MEDS ORDERED: VANCOMYCIN IV 1,000 MG in IV DEXTROSE 5% 250 ML IV SCH (14:00)
[2024-10-08 14:09] LABS: BAND % (MANUAL) 31 % (0-10); LYMPHOCYTES % (MANUAL) 13 % (20-40); MONOCYTES % (MANUAL) 4 % (2-10); NEUTROPHILS % (MANUAL) 49 % (42-75)
[2024-10-08 14:10] LABS: ANISOCYTOSIS 3+; METAMYELOCYTES % 3 % (0-1); PLATELET ESTIMATE DECREASED
[2024-10-08] MEDS: POTASSIUM CHLORIDE 50 ML IV SCH (17:37)
[2024-10-08] MEDS: MUPIROCIN 2% OINT 22 GM TUBE NS SCH (21:09)
[2024-10-08] MEDS: VASOPRESSIN 20 UNIT/ML VIAL ONE (23:50)
[2024-10-09] VITALS (96 sets, daily range): BP systolic 85–157; BP diastolic 35–77; TEMP 96.6–98.2; O2SAT 90–100
[2024-10-09 06:02] LABS: BASOPHILS # (AUTO) 0.1 K/UL (0.0-0.2); BASOPHILS % (AUTO) 0.2 % (0.0-2.0); EOSINOPHILS % (AUTO) 0.1 % (0.0-7.0); HEMATOCRIT 24.3 % (31.2-41.9); HEMOGLOBIN 7.8 g/dL (10.9-14.3); LYMPHOCYTES # (AUTO) 4.4 K/uL (0.8-4.8); LYMPHOCYTES % (AUTO) 12.5 % (20.5-51.5); MEAN CORPUSCULAR HEMOGLOBIN 26.7 uug (24.7-32.8); MEAN CORPUSCULAR HGB CONC 32 g/dL (32.3-35.6); MEAN CORPUSCULAR VOLUME 83.5 fL (75.5-95.3); MONOCYTES # (AUTO) 0.4 K/uL (0.1-1.30); MONOCYTES % (AUTO) 1.2 % (0.0-11.0); NEUTROPHILS # (AUTO) 30.1 K/uL (1.8-8.9); RED BLOOD CELL COUNT(AUTO) 2.91 MIL/uL (3.63-4.92); RED CELL DISTRIBUTION WIDTH 21.2 % (12.3-17.7)
[2024-10-09 06:07] LABS: DIFFERENTIAL COMMENT 1; PLATELET COUNT (AUTO) 43 K/uL (179-408)
[2024-10-09 06:15] LABS: ALANINE AMINOTRANSFERASE 74 U/L (14-59); ALKALINE PHOSPHATASE 175 U/L (50-136); ASPARTATE AMINOTRANSFERASE 59 U/L (15-37); BILIRUBIN,DIRECT 0.6 mg/dL (0.0-0.2); BILIRUBIN,TOTAL 0.9 mg/dL (0.2-1.0); CALCIUM 6.8 mg/dL (8.5-10.1); CARBON DIOXIDE 12 mmol/L (21-32); CHLORIDE 106 mmol/L (98-107); CREATININE 2.7 mg/dL (0.6-1.3); GLUCOSE 200 mg/dL (74-106); MAGNESIUM 1.7 mg/dL (1.8-2.4); PHOSPHOROUS 3.1 mg/dL (2.5-4.9); SODIUM SERUM 138 mmol/L (136-145); TOTAL PROTEIN, SERUM 3.7 g/dL (6.4-8.2); UREA NITROGEN, BLOOD 27 mg/dL (7-18)
[2024-10-09 06:17] LABS: ALBUMIN 0.9 g/dL (3.4-5.0); POTASSIUM 2.8 mmol/L (3.5-5.1)
[2024-10-09] MEDS: INSULIN REGULAR, HUMAN 1000 UNIT/10 ML VIAL SQ PRN (06:19)
[2024-10-09 06:21] LABS: ANISOCYTOSIS 1+; HYPOCHROMASIA 1+; LYMPHOCYTES % (MANUAL) 12 % (20-40); MONOCYTES % (MANUAL) 1 % (2-10); NEUTROPHILS % (MANUAL) 87 % (42-75); PLATELET ESTIMATE DECREASED
[2024-10-09] MEDS: POTASSIUM CHLORIDE 50 ML IV SCH (07:36)
[2024-10-09] MEDS: ALBUMIN HUMAN 25% 50 ML IV ONE (07:37)
[2024-10-09] MEDS: MAGNESIUM SULFATE/D5W 100 ML IV SCH (11:05)
[2024-10-09] MEDS: POTASSIUM CHLORIDE 40 MEQ in IV D5W 1000ML 1,000 ML IV PRN (15:36)
[2024-10-09] MEDS: VANCOMYCIN HCL 750 MG in IV DEXTROSE 5% 250 ML IV ONE (17:20)
[2024-10-09] MEDS ORDERED: MEROPENEM 1GM/NS 100ML IVPB **ER PYXIS ONLY IV ONE (21:58)
[2024-10-09] MEDS: MEROPENEM 1 G in IV NORMAL SALINE 100 ML IV ONE (22:20)
[2024-10-10] VITALS (91 sets, daily range): BP systolic 88–161; BP diastolic 55–95; TEMP 96.6–97.4; O2SAT 94–100
[2024-10-10] MEDS ORDERED: VASOPRESSIN 20 UNIT/ML VIAL ONE ×2 (00:14→00:22)
[2024-10-10 00:19] LABS: ABG BASE EXCESS -13.2 mmol/L (-2.0-3.0); ABG HCO3 11.4 mmol/L (21.0-28.0); ABG PCO2 22.5 mmHg (32.0-45.0); ABG PH 7.323 (7.350-7.450); ABG PO2 141.7 mmHg (83.0-108.0); ABG SITE ALINE; ABG TOTAL HEMOGLOBIN 8.1 G/dL (12.0-16.0); AaDO2 98.7 mmHg; COHb 0.6 % (0.5-1.5); MetHb 0.1 % (0.0-1.5); O2Hb 97.8 % (94.0-98.0); VT, ABG 450 mL
[2024-10-10 04:32] LABS: BASOPHILS # (AUTO) 0.2 K/UL (0.0-0.2); BASOPHILS % (AUTO) 0.4 % (0.0-2.0); EOSINOPHILS % (AUTO) 0.1 % (0.0-7.0); HEMATOCRIT 21.6 % (31.2-41.9); LYMPHOCYTES # (AUTO) 0.5 K/uL (0.8-4.8); LYMPHOCYTES % (AUTO) 1.5 % (20.5-51.5); MEAN CORPUSCULAR HEMOGLOBIN 27.2 uug (24.7-32.8); MEAN CORPUSCULAR HGB CONC 33 g/dL (32.3-35.6); MEAN CORPUSCULAR VOLUME 82.7 fL (75.5-95.3); MONOCYTES # (AUTO) 0.3 K/uL (0.1-1.30); MONOCYTES % (AUTO) 0.9 % (0.0-11.0); NEUTROPHILS # (AUTO) 33.9 K/uL (1.8-8.9); NEUTROPHILS % (AUTO) 97.1 % (38.5-71.5); RED BLOOD CELL COUNT(AUTO) 2.62 MIL/uL (3.63-4.92); RED CELL DISTRIBUTION WIDTH 21.1 % (12.3-17.7)
[2024-10-10 04:43] LABS: ALANINE AMINOTRANSFERASE 82 U/L (14-59); ALKALINE PHOSPHATASE 187 U/L (50-136); ASPARTATE AMINOTRANSFERASE 46 U/L (15-37); BILIRUBIN,TOTAL 1.2 mg/dL (0.2-1.0); CALCIUM 6.9 mg/dL (8.5-10.1); CARBON DIOXIDE 16 mmol/L (21-32); CHLORIDE 104 mmol/L (98-107); CREATININE 2.4 mg/dL (0.6-1.3); GLUCOSE 177 mg/dL (74-106); MAGNESIUM 1.6 mg/dL (1.8-2.4); PHOSPHOROUS 2.6 mg/dL (2.5-4.9); POTASSIUM 3.9 mmol/L (3.5-5.1); SODIUM SERUM 135 mmol/L (136-145); TOTAL PROTEIN, SERUM 3.9 g/dL (6.4-8.2); UREA NITROGEN, BLOOD 26 mg/dL (7-18)
[2024-10-10 04:47] LABS: ALBUMIN 1.1 g/dL (3.4-5.0)
[2024-10-10 04:59] LABS: LACTIC ACID 5.5 mmol/L (0.4-2.0)
[2024-10-10 05:00] LABS: DIFFERENTIAL COMMENT 1; HEMOGLOBIN 7.1 g/dL (10.9-14.3); PLATELET COUNT (AUTO) 20 K/uL (179-408); WHITE BLOOD COUNT (AUTO) 34.9 K/uL (3.8-11.8)
[2024-10-10 05:47] LABS: ABG BASE EXCESS -9.5 mmol/L (-2.0-3.0); ABG PCO2 22.9 mmHg (32.0-45.0); ABG PH 7.403 (7.350-7.450); ABG PO2 170.1 mmHg (83.0-108.0); ABG SITE ALINE; ABG TOTAL HEMOGLOBIN 8.2 G/dL (12.0-16.0); AaDO2 99.2 mmHg; COHb 0.5 % (0.5-1.5); MetHb 0.2 % (0.0-1.5); O2Hb 98.2 % (94.0-98.0); VT, ABG 450 mL
[2024-10-10 05:51] LABS: LYMPHOCYTES % (MANUAL) 2 % (20-40); NEUTROPHILS % (MANUAL) 98 % (42-75)
[2024-10-10 05:52] LABS: ANISOCYTOSIS 2+; HYPOCHROMASIA 2+; PLATELET ESTIMATE MARKED DECREASED
[2024-10-10 05:53] LABS: TARGET CELLS 1+
[2024-10-10] MEDS: ALBUMIN HUMAN 25% 50 ML IV ONE (06:36)
[2024-10-10] MEDS: MEROPENEM 500 MG in IV NORMAL SALINE 50 ML IV SCH (08:27)
[2024-10-10] MEDS ORDERED: MEROPENEM 1 G in IV NORMAL SALINE 100 ML IV SCH (09:00)
[2024-10-10] MEDS: MAGNESIUM SULFATE/D5W 100 ML IV SCH ×3 (13:05→17:06)
[2024-10-10] MEDS: SODIUM HYPOCHLORITE 0.125% (QUARTER STRENGTH) 473 ML BOTTLE TP SCH (13:46)
[2024-10-10] MEDS: MEDIHONEY= THERAHONEY 1.5 OZ TUBE TOP SCH (13:46)
[2024-10-10] MEDS: IV D5/ 0.9% NACL 1,000 ML IV PRN (16:06)
[2024-10-10] MEDS: GLUCERNA 1.2 1000ML LIQUID GT PRN (21:53)
[2024-10-10] MEDS: VANCOMYCIN HCL 750 MG in IV DEXTROSE 5% 250 ML IV ONE (22:02)
[2024-10-11] VITALS (98 sets, daily range): BP systolic 80–160; BP diastolic 45–94; TEMP 96.2–97.4; O2SAT 97–100
[2024-10-11 05:14] LABS: BASOPHILS # (AUTO) 0.1 K/UL (0.0-0.2); MONOCYTES # (AUTO) 0.3 K/uL (0.1-1.30); NEUTROPHILS # (AUTO) 35.7 K/uL (1.8-8.9)
[2024-10-11 05:16] LABS: BASOPHILS % (AUTO) 0.3 % (0.0-2.0); CALCIUM 6.4 mg/dL (8.5-10.1); CARBON DIOXIDE 13 mmol/L (21-32); CHLORIDE 100 mmol/L (98-107); CREATININE 2.3 mg/dL (0.6-1.3); EOSINOPHILS % (AUTO) 0.1 % (0.0-7.0); GLUCOSE 154 mg/dL (74-106); HEMATOCRIT 22.8 % (31.2-41.9); HEMOGLOBIN 7.6 g/dL (10.9-14.3); LYMPHOCYTES # (AUTO) 0.6 K/uL (0.8-4.8); LYMPHOCYTES % (AUTO) 1.5 % (20.5-51.5); MAGNESIUM 2.1 mg/dL (1.8-2.4); MEAN CORPUSCULAR HGB CONC 33 g/dL (32.3-35.6); MEAN CORPUSCULAR VOLUME 81.3 fL (75.5-95.3); MONOCYTES % (AUTO) 0.9 % (0.0-11.0); NEUTROPHILS % (AUTO) 97.2 % (38.5-71.5); PHOSPHOROUS 2.9 mg/dL (2.5-4.9); POTASSIUM 3.7 mmol/L (3.5-5.1); RED CELL DISTRIBUTION WIDTH 20.7 % (12.3-17.7); SODIUM SERUM 130 mmol/L (136-145); UREA NITROGEN, BLOOD 25 mg/dL (7-18)
[2024-10-11 05:20] LABS: DIFFERENTIAL COMMENT 1; PLATELET COUNT (AUTO) 16 K/uL (179-408); WHITE BLOOD COUNT (AUTO) 36.7 K/uL (3.8-11.8)
[2024-10-11 06:08] LABS: BAND % (MANUAL) 2 % (0-10); LYMPHOCYTES % (MANUAL) 1 % (20-40); MONOCYTES % (MANUAL) 1 % (2-10); MYELOCYTES % 2 % (0-0); NEUTROPHILS % (MANUAL) 94 % (42-75)
[2024-10-11 06:09] LABS: ANISOCYTOSIS 2+; HYPOCHROMASIA 3+; PLATELET ESTIMATE DECREASED
[2024-10-11 06:10] LABS: TARGET CELLS 2+
[2024-10-11] MEDS: NOREPINEPHRINE 8MG/NS 250ML 250 ML IV PRN (09:40)
[2024-10-12] VITALS (92 sets, daily range): BP systolic 96–124; BP diastolic 51–86; TEMP 97.4–98; O2SAT 99–100
[2024-10-12 05:15] LABS: BASOPHILS # (AUTO) 0.2 K/UL (0.0-0.2); MONOCYTES # (AUTO) 0.4 K/uL (0.1-1.30)
[2024-10-12 05:20] LABS: BASOPHILS % (AUTO) 0.4 % (0.0-2.0); HEMATOCRIT 22.2 % (31.2-41.9); LYMPHOCYTES # (AUTO) 0.5 K/uL (0.8-4.8); LYMPHOCYTES % (AUTO) 1.2 % (20.5-51.5); MEAN CORPUSCULAR HEMOGLOBIN 26.8 uug (24.7-32.8); MEAN CORPUSCULAR HGB CONC 33 g/dL (32.3-35.6); MEAN CORPUSCULAR VOLUME 80.5 fL (75.5-95.3); MONOCYTES % (AUTO) 0.9 % (0.0-11.0); NEUTROPHILS # (AUTO) 42.4 K/uL (1.8-8.9); NEUTROPHILS % (AUTO) 97.5 % (38.5-71.5); RED BLOOD CELL COUNT(AUTO) 2.75 MIL/uL (3.63-4.92); RED CELL DISTRIBUTION WIDTH 20.2 % (12.3-17.7)
[2024-10-12 05:31] LABS: CALCIUM 6.9 mg/dL (8.5-10.1); CARBON DIOXIDE 14 mmol/L (21-32); CHLORIDE 105 mmol/L (98-107); CREATININE 2.3 mg/dL (0.6-1.3); GLUCOSE 115 mg/dL (74-106); MAGNESIUM 1.8 mg/dL (1.8-2.4); PHOSPHOROUS 3.6 mg/dL (2.5-4.9); POTASSIUM 3.7 mmol/L (3.5-5.1); SODIUM SERUM 136 mmol/L (136-145); UREA NITROGEN, BLOOD 24 mg/dL (7-18); VANCOMYCIN,RANDOM 25.7 ug/mL (20.0-30.0)
[2024-10-12 05:32] LABS: DIFFERENTIAL COMMENT 1; PLATELET COUNT (AUTO) 18 K/uL (179-408); WHITE BLOOD COUNT (AUTO) 43.4 K/uL (3.8-11.8)
[2024-10-12 05:33] LABS: HEMOGLOBIN 7.4 g/dL (10.9-14.3)
[2024-10-12 05:34] LABS: LACTIC ACID 3.8 mmol/L (0.4-2.0)
[2024-10-12 05:58] LABS: ANISOCYTOSIS 1+; HYPOCHROMASIA 2+; LYMPHOCYTES % (MANUAL) 1 % (20-40); MONOCYTES % (MANUAL) 1 % (2-10); MYELOCYTES % 1 % (0-0); NEUTROPHILS % (MANUAL) 96 % (42-75); PLATELET ESTIMATE DECREASED; PROMYELOCYTES % 1 %
[2024-10-12 05:59] LABS: TARGET CELLS 1+
[2024-10-12 08:06] LABS: ABG BASE EXCESS -10.1 mmol/L (-2.0-3.0); ABG HCO3 13.5 mmol/L (21.0-28.0); ABG PCO2 22.4 mmHg (32.0-45.0); ABG PH 7.398 (7.350-7.450); ABG PO2 131.8 mmHg (83.0-108.0); ABG SITE ALINE; ABG TOTAL HEMOGLOBIN 7.6 G/dL (12.0-16.0); AaDO2 98.7 mmHg; COHb 0.8 % (0.5-1.5); MetHb 0.3 % (0.0-1.5); O2Hb 97.1 % (94.0-98.0); VT, ABG 450 mL
[2024-10-12] MEDS: IV D5/ 0.9% NACL 1,000 ML IV PRN (18:35)
[2024-10-12] MEDS: GLUCERNA 1.2 1000ML LIQUID GT PRN (19:57)
[2024-10-12] MEDS ORDERED: FLUCONAZOLE 200 MG/100 ML PIGGYBACK ONE (23:58)
[2024-10-13] VITALS (91 sets, daily range): BP systolic 79–127; BP diastolic 48–83; TEMP 97–98.2; O2SAT 100
[2024-10-13] MEDS: FLUCONAZOLE 200 MG/NS 100ML IV 200 MG in PREMIXED 1 EACH IV SCH (00:01)
[2024-10-13 05:04] LABS: BASOPHILS # (AUTO) 0.2 K/UL (0.0-0.2); EOSINOPHILS % (AUTO) 0.1 % (0.0-7.0); LYMPHOCYTES # (AUTO) 2.5 K/uL (0.8-4.8); LYMPHOCYTES % (AUTO) 5.9 % (20.5-51.5)
[2024-10-13 05:07] LABS: BASOPHILS % (AUTO) 0.4 % (0.0-2.0); MEAN CORPUSCULAR HEMOGLOBIN 26.6 uug (24.7-32.8); MEAN CORPUSCULAR HGB CONC 33 g/dL (32.3-35.6); MEAN CORPUSCULAR VOLUME 80.8 fL (75.5-95.3); MONOCYTES # (AUTO) 0.7 K/uL (0.1-1.30); MONOCYTES % (AUTO) 1.8 % (0.0-11.0); NEUTROPHILS # (AUTO) 38.8 K/uL (1.8-8.9); NEUTROPHILS % (AUTO) 91.8 % (38.5-71.5); RED BLOOD CELL COUNT(AUTO) 2.55 MIL/uL (3.63-4.92)
[2024-10-13 05:15] LABS: CALCIUM 6.6 mg/dL (8.5-10.1); CARBON DIOXIDE 14 mmol/L (21-32); CHLORIDE 106 mmol/L (98-107); CREATININE 2.3 mg/dL (0.6-1.3); GLUCOSE 133 mg/dL (74-106); MAGNESIUM 1.7 mg/dL (1.8-2.4); PHOSPHOROUS 4.6 mg/dL (2.5-4.9); POTASSIUM 3.5 mmol/L (3.5-5.1); SODIUM SERUM 139 mmol/L (136-145); UREA NITROGEN, BLOOD 28 mg/dL (7-18); VANCOMYCIN,RANDOM 21.4 ug/mL (20.0-30.0)
[2024-10-13 05:18] LABS: WHITE BLOOD COUNT (AUTO) 42.2 K/uL (3.8-11.8)
[2024-10-13 05:19] LABS: DIFFERENTIAL COMMENT 1; HEMATOCRIT 20.6 % (31.2-41.9); HEMOGLOBIN 6.8 g/dL (10.9-14.3); PLATELET COUNT (AUTO) 30 K/uL (179-408)
[2024-10-13 05:58] LABS: TRIGLYCERIDES 197 MG/DL (30-150)
[2024-10-13 06:00] LABS: ABG SITE ALINE; ABG TOTAL HEMOGLOBIN 6.7 G/dL (12.0-16.0); AaDO2 98.8 mmHg; MetHb 0.3 % (0.0-1.5); VT, ABG 450 mL
[2024-10-13 06:07] LABS: ABG BASE EXCESS -11.3 mmol/L (-2.0-3.0); ABG HCO3 12.9 mmol/L (21.0-28.0); ABG PCO2 22.8 mmHg (32.0-45.0); ABG PH 7.369 (7.350-7.450); ABG PO2 142.1 mmHg (83.0-108.0); COHb 0.9 % (0.5-1.5)
[2024-10-13 06:09] LABS: ANISOCYTOSIS 1+; BAND % (MANUAL) 5 % (0-10); HYPOCHROMASIA 2+; LYMPHOCYTES % (MANUAL) 1 % (20-40); METAMYELOCYTES % 1 % (0-1); MONOCYTES % (MANUAL) 2 % (2-10); MYELOCYTES % 1 % (0-0); NEUTROPHILS % (MANUAL) 90 % (42-75); PLATELET ESTIMATE DECREASED
[2024-10-13 06:10] LABS: TARGET CELLS 1+
[2024-10-13] MEDS: MAGNESIUM SULFATE/D5W 100 ML IV SCH (08:39)
[2024-10-13] MEDS: ALBUMIN HUMAN 25% 100 ML IV ONE (13:15)
[2024-10-13] MEDS ORDERED: GLUCERNA 1.2 1000ML LIQUID GT PRN ×2 (13:15)
[2024-10-13] MEDS: METOCLOPRAMIDE HCL 10 MG/2 ML VIAL IV SCH ×2 (13:25→17:30)
[2024-10-13] MEDS ORDERED: TPN/PPN PER PHARMACY IV PRN (13:30)
[2024-10-13] MEDS: IV NORMAL SALINE 500 ML IV ONE ×2 (17:15→18:09)
[2024-10-13] MEDS: SODIUM CHLORIDE 4 MEQ/ML VIAL 154 MEQ in IV 10% DEXTROSE 1,000 ML IV SCH (17:31)
[2024-10-14] VITALS (49 sets, daily range): BP systolic 33–158; BP diastolic 11–89; TEMP 95.9–98.4; O2SAT 100
[2024-10-14 04:34] LABS: BASOPHILS # (AUTO) 0.1 K/UL (0.0-0.2); BASOPHILS % (AUTO) 0.3 % (0.0-2.0); DIFFERENTIAL COMMENT 0; HEMATOCRIT 24.4 % (31.2-41.9); LYMPHOCYTES # (AUTO) 0.7 K/uL (0.8-4.8); LYMPHOCYTES % (AUTO) 2.1 % (20.5-51.5); MEAN CORPUSCULAR HEMOGLOBIN 27.5 uug (24.7-32.8); MEAN CORPUSCULAR HGB CONC 33 g/dL (32.3-35.6); MEAN CORPUSCULAR VOLUME 84.1 fL (75.5-95.3); MONOCYTES # (AUTO) 0.7 K/uL (0.1-1.30); MONOCYTES % (AUTO) 1.9 % (0.0-11.0); NEUTROPHILS # (AUTO) 32.3 K/uL (1.8-8.9); NEUTROPHILS % (AUTO) 95.7 % (38.5-71.5); RED BLOOD CELL COUNT(AUTO) 2.91 MIL/uL (3.63-4.92); RED CELL DISTRIBUTION WIDTH 18.6 % (12.3-17.7)
[2024-10-14 04:36] LABS: PLATELET COUNT (AUTO) 28 K/uL (179-408); WHITE BLOOD COUNT (AUTO) 33.8 K/uL (3.8-11.8)
[2024-10-14 04:38] LABS: ALANINE AMINOTRANSFERASE 78 U/L (14-59); ALKALINE PHOSPHATASE 218 U/L (50-136); ASPARTATE AMINOTRANSFERASE 22 U/L (15-37); BILIRUBIN,DIRECT 1.1 mg/dL (0.0-0.2); BILIRUBIN,TOTAL 1.5 mg/dL (0.2-1.0); CALCIUM 6.7 mg/dL (8.5-10.1); CARBON DIOXIDE 15 mmol/L (21-32); CHLORIDE 107 mmol/L (98-107); CREATININE 2.2 mg/dL (0.6-1.3); GLUCOSE 124 mg/dL (74-106); PHOSPHOROUS 4.8 mg/dL (2.5-4.9); POTASSIUM 3.1 mmol/L (3.5-5.1); SODIUM SERUM 138 mmol/L (136-145); TOTAL PROTEIN, SERUM 4.4 g/dL (6.4-8.2); UREA NITROGEN, BLOOD 29 mg/dL (7-18); VANCOMYCIN,RANDOM 20.3 ug/mL (20.0-30.0)
[2024-10-14 04:56] LABS: ALBUMIN 1.4 g/dL (3.4-5.0)
[2024-10-14 05:22] LABS: LACTIC ACID 2.4 mmol/L (0.4-2.0)
[2024-10-14 06:22] LABS: ANISOCYTOSIS 1+; BAND % (MANUAL) 4 % (0-10); LYMPHOCYTES % (MANUAL) 2 % (20-40); METAMYELOCYTES % 1 % (0-1); MONOCYTES % (MANUAL) 2 % (2-10); NEUTROPHILS % (MANUAL) 90 % (42-75); PROMYELOCYTES % 1 %; TARGET CELLS 2+
[2024-10-14 06:23] LABS: PLATELET ESTIMATE DECRE
[2024-10-14 06:46] LABS: ABG BASE EXCESS -11.2 mmol/L (-2.0-3.0); ABG HCO3 12.9 mmol/L (21.0-28.0); ABG PCO2 23.7 mmHg (32.0-45.0); ABG PH 7.355 (7.350-7.450); ABG SITE ALINE; ABG TOTAL HEMOGLOBIN 8.4 G/dL (12.0-16.0); AaDO2 98.7 mmHg; COHb 0.9 % (0.5-1.5); MetHb 0.5 % (0.0-1.5); VT, ABG 450 mL
[2024-10-14] MEDS: REMEDY ESSENTIAL ZINC PASTE 113 GM TP PRN (10:15)
[2024-10-14] MEDS: POTASSIUM CHLORIDE 50 ML IV SCH ×2 (11:31→14:38)
[2024-10-14] MEDS ORDERED: ALBUMIN HUMAN 5% 500 ML IV ONE (14:00)
[2024-10-14] MEDS: ALBUMIN HUMAN 5% 250 ML IV SCH (14:09)
[2024-10-14] MEDS: IV NORMAL SALINE 500 ML IV ONE (14:27)
[2024-10-14] MEDS ORDERED: MEROPENEM 500 MG in IV NORMAL SALINE 50 ML IV SCH (17:00)
[2024-10-14] MEDS: IV NS 1000 ML 1,000 ML IV SCH (17:24)
[2024-10-14] MEDS: TPN BAG #1 IV SCH (17:26)
[2024-10-14] MEDS: MEROPENEM 1 G in IV NORMAL SALINE 100 ML IV SCH (20:54)
[2024-10-14] MEDS: MORPHINE SULFATE 2 MG/1 ML DISP.SYRIN IV ONE (23:13)
[2024-10-14] MEDS ORDERED: VASOPRESSIN 20 UNIT/ML VIAL ONE (23:17)
[2024-10-14] MEDS ORDERED: PHENYLEPHRINE 10 MG/1 ML VIAL ONE (23:45)
[2024-10-15] VITALS (70 sets, daily range): BP systolic 98–159; BP diastolic 62–87; TEMP 95.4–97.5; O2SAT 100
[2024-10-15] MEDS: MORPHINE SULFATE 4 MG/1 ML DISP.SYRIN IV ONE (02:00)
[2024-10-15 04:49] LABS: BASOPHILS # (AUTO) 0.1 K/UL (0.0-0.2); BASOPHILS % (AUTO) 0.2 % (0.0-2.0); LYMPHOCYTES # (AUTO) 0.6 K/uL (0.8-4.8); LYMPHOCYTES % (AUTO) 2.1 % (20.5-51.5); MEAN CORPUSCULAR HGB CONC 32 g/dL (32.3-35.6); MEAN CORPUSCULAR VOLUME 84.1 fL (75.5-95.3); MONOCYTES # (AUTO) 0.5 K/uL (0.1-1.30); MONOCYTES % (AUTO) 1.8 % (0.0-11.0); NEUTROPHILS # (AUTO) 28.5 K/uL (1.8-8.9); NEUTROPHILS % (AUTO) 95.9 % (38.5-71.5); RED CELL DISTRIBUTION WIDTH 18.3 % (12.3-17.7); WHITE BLOOD COUNT (AUTO) 29.7 K/uL (3.8-11.8)
[2024-10-15 04:55] LABS: HEMOGLOBIN 6.8 g/dL (10.9-14.3)
[2024-10-15 04:57] LABS: DIFFERENTIAL COMMENT 1; PLATELET COUNT (AUTO) 35 K/uL (179-408)
[2024-10-15 05:03] LABS: ALBUMIN 1.7 g/dL (3.4-5.0); CALCIUM 6.6 mg/dL (8.5-10.1); CARBON DIOXIDE 14 mmol/L (21-32); CHLORIDE 109 mmol/L (98-107); CREATININE 2.1 mg/dL (0.6-1.3); GLUCOSE 118 mg/dL (74-106); MAGNESIUM 1.8 mg/dL (1.8-2.4); PHOSPHOROUS 3.9 mg/dL (2.5-4.9); POTASSIUM 3.2 mmol/L (3.5-5.1); SODIUM SERUM 140 mmol/L (136-145); UREA NITROGEN, BLOOD 31 mg/dL (7-18)
[2024-10-15 05:42] LABS: ANISOCYTOSIS 2+; HYPOCHROMASIA 1+; LYMPHOCYTES % (MANUAL) 3 % (20-40); MONOCYTES % (MANUAL) 1 % (2-10); NEUTROPHILS % (MANUAL) 96 % (42-75); PLATELET ESTIMATE MARKED DECREASED; TARGET CELLS 1+
[2024-10-15] MEDS: POTASSIUM CHLORIDE 50 ML IV SCH (08:27)
[2024-10-15] MEDS: TPN BAG # 2 IV SCH (17:29)
[2024-10-16] VITALS (81 sets, daily range): BP systolic 110–175; BP diastolic 73–102; TEMP 96.4–97.8; O2SAT 100
[2024-10-16 05:10] LABS: HEMATOCRIT 26.7 % (31.2-41.9); HEMOGLOBIN 9.1 g/dL (10.9-14.3); MONOCYTES # (AUTO) 0.5 K/uL (0.1-1.30); MONOCYTES % (AUTO) 1.4 % (0.0-11.0)
[2024-10-16 05:12] LABS: BASOPHILS # (AUTO) 0.4 K/UL (0.0-0.2); BASOPHILS % (AUTO) 1.3 % (0.0-2.0); EOSINOPHILS % (AUTO) 0.1 % (0.0-7.0); LYMPHOCYTES # (AUTO) 0.5 K/uL (0.8-4.8); LYMPHOCYTES % (AUTO) 1.5 % (20.5-51.5); MEAN CORPUSCULAR HEMOGLOBIN 28.5 uug (24.7-32.8); MEAN CORPUSCULAR HGB CONC 34 g/dL (32.3-35.6); MEAN CORPUSCULAR VOLUME 83.9 fL (75.5-95.3); NEUTROPHILS # (AUTO) 32.9 K/uL (1.8-8.9); NEUTROPHILS % (AUTO) 95.7 % (38.5-71.5); RED BLOOD CELL COUNT(AUTO) 3.19 MIL/uL (3.63-4.92); RED CELL DISTRIBUTION WIDTH 16.8 % (12.3-17.7)
[2024-10-16 05:21] LABS: CALCIUM 6.6 mg/dL (8.5-10.1); CARBON DIOXIDE 15 mmol/L (21-32); CHLORIDE 108 mmol/L (98-107); CREATININE 1.9 mg/dL (0.6-1.3); GLUCOSE 144 mg/dL (74-106); PHOSPHOROUS 3.1 mg/dL (2.5-4.9); POTASSIUM 3.2 mmol/L (3.5-5.1); SODIUM SERUM 137 mmol/L (136-145); TRIGLYCERIDES 123 MG/DL (30-150); UREA NITROGEN, BLOOD 35 mg/dL (7-18)
[2024-10-16 05:28] LABS: DIFFERENTIAL COMMENT 1; PLATELET COUNT (AUTO) 39 K/uL (179-408)
[2024-10-16 05:29] LABS: WHITE BLOOD COUNT (AUTO) 34.4 K/uL (3.8-11.8)
[2024-10-16 05:50] LABS: LYMPHOCYTES % (MANUAL) 4 % (20-40); MONOCYTES % (MANUAL) 1 % (2-10); NEUTROPHILS % (MANUAL) 95 % (42-75)
[2024-10-16 05:51] LABS: ANISOCYTOSIS 1+; HYPOCHROMASIA 1+; PLATELET ESTIMATE MARKED DECREASED
[2024-10-16 05:52] LABS: TARGET CELLS 1+
[2024-10-16] MEDS: IV NS 1000 ML 1,000 ML IV SCH (08:22)
[2024-10-16 09:14] LABS: ABG BASE EXCESS -9.6 mmol/L (-2.0-3.0); ABG HCO3 13.3 mmol/L (21.0-28.0); ABG PCO2 20.8 mmHg (32.0-45.0); ABG PH 7.423 (7.350-7.450); ABG PO2 126.5 mmHg (83.0-108.0); ABG SITE ALINE; ABG TOTAL HEMOGLOBIN 9.3 G/dL (12.0-16.0); AaDO2 98.7 mmHg; COHb 0.2 % (0.5-1.5); MetHb 0.3 % (0.0-1.5); O2Hb 97.5 % (94.0-98.0); VT, ABG 450 mL
[2024-10-16] MEDS: TPN BAG #3 IV SCH (10:12)
[2024-10-16] MEDS: POTASSIUM CHLORIDE 50 ML IV SCH (12:49)
[2024-10-16] MEDS: GLUCERNA 1.2 1000ML LIQUID GT PRN (14:13)
[2024-10-16] MEDS: VASOPRESSIN 20 UNIT in IV NORMAL SALINE 40 ML IV PRN (17:36)
[2024-10-16] MEDS: HYDROCORTISONE SOD SUCCINATE 100 MG/2 ML VIAL IV SCH (20:03)
[2024-10-16] MEDS: TPN BAG # 4 IV SCH (21:18)
[2024-10-17] VITALS (58 sets, daily range): BP systolic 100–163; BP diastolic 54–91; TEMP 96.6–97.1; O2SAT 100
[2024-10-17 04:59] LABS: LYMPHOCYTES # (AUTO) 0.6 K/uL (0.8-4.8)
[2024-10-17 05:01] LABS: BASOPHILS # (AUTO) 0.1 K/UL (0.0-0.2); BASOPHILS % (AUTO) 0.3 % (0.0-2.0); HEMOGLOBIN 8.6 g/dL (10.9-14.3); LYMPHOCYTES % (AUTO) 1.5 % (20.5-51.5); MEAN CORPUSCULAR HEMOGLOBIN 28.2 uug (24.7-32.8); MEAN CORPUSCULAR HGB CONC 33 g/dL (32.3-35.6); MONOCYTES # (AUTO) 0.5 K/uL (0.1-1.30); MONOCYTES % (AUTO) 1.4 % (0.0-11.0); NEUTROPHILS # (AUTO) 38.2 K/uL (1.8-8.9); NEUTROPHILS % (AUTO) 96.8 % (38.5-71.5); PLATELET COUNT (AUTO) 52 K/uL (179-408); RED BLOOD CELL COUNT(AUTO) 3.06 MIL/uL (3.63-4.92); RED CELL DISTRIBUTION WIDTH 16.8 % (12.3-17.7)
[2024-10-17 05:08] LABS: DIFFERENTIAL COMMENT 1
[2024-10-17 05:09] LABS: CALCIUM 6.6 mg/dL (8.5-10.1); CARBON DIOXIDE 15 mmol/L (21-32); CHLORIDE 109 mmol/L (98-107); CREATININE 1.7 mg/dL (0.6-1.3); GLUCOSE 147 mg/dL (74-106); MAGNESIUM 2.2 mg/dL (1.8-2.4); PHOSPHOROUS 2.5 mg/dL (2.5-4.9); POTASSIUM 3.3 mmol/L (3.5-5.1); SODIUM SERUM 138 mmol/L (136-145); UREA NITROGEN, BLOOD 44 mg/dL (7-18)
[2024-10-17 05:11] LABS: WHITE BLOOD COUNT (AUTO) 39.5 K/uL (3.8-11.8)
[2024-10-17 05:53] LABS: LYMPHOCYTES % (MANUAL) 4 % (20-40); MONOCYTES % (MANUAL) 5 % (2-10); NEUTROPHILS % (MANUAL) 91 % (42-75)
[2024-10-17 05:53] LABS: ABG BASE EXCESS -8.9 mmol/L (-2.0-3.0); ABG HCO3 13.9 mmol/L (21.0-28.0); ABG PCO2 21.4 mmHg (32.0-45.0); ABG PH 7.432 (7.350-7.450); ABG PO2 120.4 mmHg (83.0-108.0); ABG SITE ALINE; ABG TOTAL HEMOGLOBIN 9.1 G/dL (12.0-16.0); AaDO2 98.6 mmHg; COHb 0.6 % (0.5-1.5); CPAP,BG 5 cmH20; MetHb 0.3 % (0.0-1.5); O2Hb 97.5 % (94.0-98.0)
[2024-10-17 05:54] LABS: ANISOCYTOSIS 2+; HYPOCHROMASIA 2+; PLATELET ESTIMATE DECREASED; STOMATOCYTES 1+; TARGET CELLS 1+
[2024-10-17] MEDS ORDERED: POTASSIUM PHOSPHATE MM 15 MMOL in IV NORMAL SALINE 250 ML IV ONE (09:00)
[2024-10-17] MEDS: POTASSIUM CHLORIDE 50 ML IV SCH (10:19)
[2024-10-17] MEDS: TPN BAG #5 IV SCH (11:29)
[2024-10-17] MEDS: MORPHINE SULFATE 2 MG/1 ML DISP.SYRIN IV ONE (13:14)
[2024-10-17] MEDS: GLUCERNA 1.2 1000ML LIQUID GT PRN (21:33)
[2024-10-18] VITALS (37 sets, daily range): BP systolic 95–124; BP diastolic 56–98; TEMP 96.5–96.8; O2SAT 100
[2024-10-18 05:05] LABS: BASOPHILS # (AUTO) 0.3 K/UL (0.0-0.2); HEMOGLOBIN 8.8 g/dL (10.9-14.3); MEAN CORPUSCULAR HEMOGLOBIN 28.7 uug (24.7-32.8)
[2024-10-18 05:10] LABS: BASOPHILS % (AUTO) 0.7 % (0.0-2.0); EOSINOPHILS % (AUTO) 0.1 % (0.0-7.0); HEMATOCRIT 26.1 % (31.2-41.9); LYMPHOCYTES # (AUTO) 0.6 K/uL (0.8-4.8); LYMPHOCYTES % (AUTO) 1.3 % (20.5-51.5); MEAN CORPUSCULAR HGB CONC 34 g/dL (32.3-35.6); MEAN CORPUSCULAR VOLUME 85.7 fL (75.5-95.3); MONOCYTES # (AUTO) 0.5 K/uL (0.1-1.30); NEUTROPHILS # (AUTO) 43.3 K/uL (1.8-8.9); NEUTROPHILS % (AUTO) 96.9 % (38.5-71.5); PLATELET COUNT (AUTO) 78 K/uL (179-408); RED BLOOD CELL COUNT(AUTO) 3.05 MIL/uL (3.63-4.92); RED CELL DISTRIBUTION WIDTH 16.7 % (12.3-17.7)
[2024-10-18 05:17] LABS: ALANINE AMINOTRANSFERASE 45 U/L (14-59); ALKALINE PHOSPHATASE 370 U/L (50-136); ASPARTATE AMINOTRANSFERASE 27 U/L (15-37); BILIRUBIN,DIRECT 0.9 mg/dL (0.0-0.2); BILIRUBIN,TOTAL 1.2 mg/dL (0.2-1.0); CALCIUM 7.2 mg/dL (8.5-10.1); CARBON DIOXIDE 16 mmol/L (21-32); CHLORIDE 114 mmol/L (98-107); CREATININE 1.8 mg/dL (0.6-1.3); GLUCOSE 122 mg/dL (74-106); PHOSPHOROUS 2.4 mg/dL (2.5-4.9); POTASSIUM 3.4 mmol/L (3.5-5.1); SODIUM SERUM 144 mmol/L (136-145); TOTAL PROTEIN, SERUM 3.9 g/dL (6.4-8.2); UREA NITROGEN, BLOOD 54 mg/dL (7-18)
[2024-10-18 05:24] LABS: ALBUMIN 1.3 g/dL (3.4-5.0)
[2024-10-18 05:25] LABS: DIFFERENTIAL COMMENT 1; WHITE BLOOD COUNT (AUTO) 44.6 K/uL (3.8-11.8)
[2024-10-18 05:46] LABS: LYMPHOCYTES % (MANUAL) 3 % (20-40); MONOCYTES % (MANUAL) 1 % (2-10); NEUTROPHILS % (MANUAL) 96 % (42-75)
[2024-10-18 05:47] LABS: ANISOCYTOSIS 1+; HYPOCHROMASIA 1+; PLATELET ESTIMATE MARKED DECREASED
[2024-10-18 06:39] LABS: ABG BASE EXCESS -9.5 mmol/L (-2.0-3.0); ABG HCO3 13.4 mmol/L (21.0-28.0); ABG PCO2 20.7 mmHg (32.0-45.0); ABG PH 7.429 (7.350-7.450); ABG PO2 106.3 mmHg (83.0-108.0); ABG SITE ALINE; ABG TOTAL HEMOGLOBIN 8.8 G/dL (12.0-16.0); AaDO2 98.1 mmHg; COHb 0.5 % (0.5-1.5); CPAP,BG 5 cmH20; MetHb 0.3 % (0.0-1.5)
[2024-10-18] MEDS: MULTIVITAMINS,THERAPEUTIC TABLET PO SCH (08:04)
[2024-10-18] MEDS: POTASSIUM PHOSPHATE MM 15 MMOL in IV NORMAL SALINE 250 ML IV ONE (10:00)
[2024-10-18] MEDS: ALBUMIN HUMAN 25% 100 ML IV ONE (10:01)
[2024-10-18] MEDS: FUROSEMIDE 20 MG/2 ML VIAL IV ONE (11:20)
[2024-10-18] MEDS: ACETAMINOPHEN 325 MG TABLET PO PRN (23:55)
[2024-10-19] VITALS (80 sets, daily range): BP systolic 56–132; BP diastolic 32–102; TEMP 96.5–97.9; O2SAT 95–100
[2024-10-19] MEDS: HYDROMORPHONE 1 MG/1 ML DISP.SYRIN IV ONE (00:54)
[2024-10-19] MEDS: IV NORMAL SALINE 250 ML BAG IV ONE (03:37)
[2024-10-19 04:57] LABS: BASOPHILS # (AUTO) 0.2 K/UL (0.0-0.2); BASOPHILS % (AUTO) 0.3 % (0.0-2.0); LYMPHOCYTES % (AUTO) 0.6 % (20.5-51.5); MONOCYTES # (AUTO) 0.1 K/uL (0.1-1.30); NEUTROPHILS % (AUTO) 98.9 % (38.5-71.5)
[2024-10-19 05:03] LABS: EOSINOPHILS % (AUTO) 0.1 % (0.0-7.0); HEMATOCRIT 23.7 % (31.2-41.9); HEMOGLOBIN 7.8 g/dL (10.9-14.3); LYMPHOCYTES # (AUTO) 0.4 K/uL (0.8-4.8); MEAN CORPUSCULAR HEMOGLOBIN 28.7 uug (24.7-32.8); MEAN CORPUSCULAR HGB CONC 33 g/dL (32.3-35.6); MEAN CORPUSCULAR VOLUME 86.8 fL (75.5-95.3); MONOCYTES % (AUTO) 0.1 % (0.0-11.0); NEUTROPHILS # (AUTO) 54.7 K/uL (1.8-8.9); PLATELET COUNT (AUTO) 78 K/uL (179-408); RED BLOOD CELL COUNT(AUTO) 2.73 MIL/uL (3.63-4.92); RED CELL DISTRIBUTION WIDTH 16.4 % (12.3-17.7)
[2024-10-19 05:08] LABS: CALCIUM 6.9 mg/dL (8.5-10.1); CARBON DIOXIDE 15 mmol/L (21-32); CHLORIDE 116 mmol/L (98-107); CREATININE 1.8 mg/dL (0.6-1.3); GLUCOSE 110 mg/dL (74-106); MAGNESIUM 2.2 mg/dL (1.8-2.4); PHOSPHOROUS 5.5 mg/dL (2.5-4.9); POTASSIUM 3.5 mmol/L (3.5-5.1); SODIUM SERUM 147 mmol/L (136-145); UREA NITROGEN, BLOOD 58 mg/dL (7-18)
[2024-10-19 05:22] LABS: DIFFERENTIAL COMMENT 1; WHITE BLOOD COUNT (AUTO) 55.4 K/uL (3.8-11.8)
[2024-10-19 05:29] LABS: ANISOCYTOSIS 1+; LYMPHOCYTES % (MANUAL) 2 % (20-40); MONOCYTES % (MANUAL) 1 % (2-10); NEUTROPHILS % (MANUAL) 97 % (42-75); PLATELET ESTIMATE MARKED DECREASED
[2024-10-19] MEDS: ALBUMIN HUMAN 25% 100 ML IV ONE (05:29)
[2024-10-19] MEDS: NOREPINEPHRINE 8MG/NS 250ML 250 ML IV PRN (07:27)
[2024-10-19] MEDS ORDERED: IV NORMAL SALINE 1000 ML BAG IV ONE (08:45)
[2024-10-19] MEDS: IV NS 1000 ML 1,000 ML IV ONE ×2 (09:01→12:12)
[2024-10-19 11:30] LABS: *BLOOD, URINE 1+ (NEGATIVE); *CLARITY,URINE CLEAR (CLEAR); *COLOR,URINE Orange (YELLOW); *KETONES,URINE TRACE (NEGATIVE); *PROTEIN,URINE 2+ (NEGATIVE); *UROBILINOGEN,URINE 0.2 E.U./dl (NORMAL); LEUKOCYTE ESTERASE ,URINE NEGATIVE (NEGATIVE); NITRITE, URINE NEGATIVE (NEGATIVE); UGLUCOSE NEGATIVE (NEGATIVE)
[2024-10-19 11:32] LABS: *BILIRUBIN,URIN 2+ (NEGATIVE)
[2024-10-19 11:56] LABS: PEEP,VBG 0 cm H2O; SITE, VBG VBG - N/A; VBG AaDO2 72.5 mmHg; VBG BASE EXCESS -11.9 mmol/L (-2.0-3.0); VBG HCO3 13.3 mmol/L (22.0-29.0); VBG MetHb 0.4 % (0.5-1.5); VBG O2HB 71.9 % (0-79.0); VBG PCO2 27.8 mmHg (38.0-54.0); VBG PH 7.297 (7.320-7.430); VBG PO2 41.3 mmHg (23.0-48.0); VBG TOTAL HEMOGLOBIN 9.5 G/dL (12.0-16.0)
[2024-10-19] MEDS ORDERED: DIATR MEGLU/DIATRIZOATE SODIUM 120 ML BOTTLE ONE (12:22)
[2024-10-19] MEDS ORDERED: TPN/PPN PER PHARMACY IV PRN (12:30)
[2024-10-19 12:31] LABS: BACTERIA,URINE MODERATE /HPF (NONE SEEN); CALCIUM OXALATE CRYSTALS,UR MODERATE /HPF (NONE SEEN); SQUAMOUS EPITHELIAL CELL,UR FEW /HPF (NONE SEEN)
[2024-10-19 12:49] LABS: YEAST,URINE BUDDING YEAST /HPF (NONE SEEN)
[2024-10-19] MEDS: SODIUM BICARBONATE 8.4% 50 MEQ/50 ML DISP.SYRIN IV ONE (13:27)
[2024-10-19] MEDS: POTASSIUM CHLORIDE 20 MEQ in IV D5/ 0.9% NACL 1,000 ML IV PRN (15:40)
[2024-10-19] MEDS: PROPOFOL 100 ML IV PRN (17:10)
[2024-10-19] MEDS ORDERED: FLUCONAZOLE 200 MG/NS 100ML IV 100 MG in PREMIXED 1 EACH IV SCH (19:00)
[2024-10-19] MEDS ORDERED: VANCOMYCIN 1000 MG VIAL ONE (21:55)
[2024-10-19] MEDS: VANCOMYCIN IV 2,000 MG in IV DEXTROSE 5% 500 ML IV ONE (22:03)
[2024-10-20] VITALS (95 sets, daily range): BP systolic 74–134; BP diastolic 48–99; TEMP 96.4–97.9; O2SAT 96–100
[2024-10-20 05:15] LABS: BASOPHILS # (AUTO) 0.1 K/UL (0.0-0.2); BASOPHILS % (AUTO) 0.2 % (0.0-2.0); HEMATOCRIT 24.2 % (31.2-41.9); HEMOGLOBIN 7.7 g/dL (10.9-14.3); LYMPHOCYTES # (AUTO) 0.3 K/uL (0.8-4.8); LYMPHOCYTES % (AUTO) 0.5 % (20.5-51.5); MEAN CORPUSCULAR HEMOGLOBIN 29.1 uug (24.7-32.8); MEAN CORPUSCULAR HGB CONC 32 g/dL (32.3-35.6); MEAN CORPUSCULAR VOLUME 91.3 fL (75.5-95.3); MONOCYTES # (AUTO) 0.2 K/uL (0.1-1.30); MONOCYTES % (AUTO) 0.3 % (0.0-11.0); NEUTROPHILS # (AUTO) 57.5 K/uL (1.8-8.9); PLATELET COUNT (AUTO) 78 K/uL (179-408); RED BLOOD CELL COUNT(AUTO) 2.65 MIL/uL (3.63-4.92); RED CELL DISTRIBUTION WIDTH 17.3 % (12.3-17.7)
[2024-10-20 05:27] LABS: ALANINE AMINOTRANSFERASE 43 U/L (14-59); ALKALINE PHOSPHATASE 140 U/L (50-136); ASPARTATE AMINOTRANSFERASE 43 U/L (15-37); BILIRUBIN,DIRECT 0.9 mg/dL (0.0-0.2); BILIRUBIN,TOTAL 1.3 mg/dL (0.2-1.0); CALCIUM 6.7 mg/dL (8.5-10.1); CARBON DIOXIDE 12 mmol/L (21-32); CHLORIDE 116 mmol/L (98-107); CREATININE 1.5 mg/dL (0.6-1.3); GLUCOSE 159 mg/dL (74-106); MAGNESIUM 1.9 mg/dL (1.8-2.4); PHOSPHOROUS 5.7 mg/dL (2.5-4.9); POTASSIUM 3.6 mmol/L (3.5-5.1); SODIUM SERUM 145 mmol/L (136-145); TOTAL PROTEIN, SERUM 3.6 g/dL (6.4-8.2); UREA NITROGEN, BLOOD 52 mg/dL (7-18)
[2024-10-20 05:35] LABS: ALBUMIN 1.3 g/dL (3.4-5.0); DIFFERENTIAL COMMENT 1; WHITE BLOOD COUNT (AUTO) 58.1 K/uL (3.8-11.8)
[2024-10-20 05:53] LABS: ANISOCYTOSIS 1+; LYMPHOCYTES % (MANUAL) 1 % (20-40); NEUTROPHILS % (MANUAL) 99 % (42-75); PLATELET ESTIMATE MARKED DECREASED
[2024-10-20 05:54] LABS: HYPOCHROMASIA 1+
[2024-10-20] MEDS: NUTRISOURCE FIBER 4 GM PACKET GT SCH (08:10)
[2024-10-20] MEDS ORDERED: TPN/PPN PER PHARMACY IV PRN (10:45)
[2024-10-20] MEDS: NOREPINEPHRINE BITARTRATE 32 MG in IV NORMAL SALINE 218 ML IV PRN (11:52)
[2024-10-20] MEDS: IV D5/ 0.9% NACL 1,000 ML IV PRN (11:55)
[2024-10-20] MEDS: TPN BAG #1 IV SCH (11:58)
[2024-10-20 17:58] LABS: ABG BASE EXCESS -11.7 mmol/L (-2.0-3.0); ABG PCO2 21.4 mmHg (32.0-45.0); ABG PH 7.368 (7.350-7.450); ABG PO2 94.9 mmHg (83.0-108.0); ABG SITE RIGHT BRACHIAL; ABG TOTAL HEMOGLOBIN 9.1 G/dL (12.0-16.0); AaDO2 97.2 mmHg; COHb 0.2 % (0.5-1.5); MetHb 0.2 % (0.0-1.5); O2Hb 96.7 % (94.0-98.0); VT, ABG 450 mL
[2024-10-20] MEDS: CALCIUM GLUCONATE IV 2 GM in IV NORMAL SALINE 100 ML IV ONE (18:16)
[2024-10-20] MEDS: CALCIUM GLUCONATE IV 2 GM in IV DEXTROSE 5% 250 ML IV ONE (18:48)
[2024-10-20] MEDS ORDERED: INSU100V28 SQ (21:53)
[2024-10-20] MEDS ORDERED: RXVAN XX (21:53)
[2024-10-20] MEDS ORDERED: MERO1PIG IV (21:53)
[2024-10-20] MEDS ORDERED: SODI473S8 TP (21:53)
[2024-10-20] MEDS ORDERED: MENT113O TOP (21:53)
[2024-10-20] MEDS ORDERED: FLUC200P10 IV (21:53)
[2024-10-20] MEDS ORDERED: PANT40VI IV (21:53)
[2024-10-20] MEDS ORDERED: Blood Sugar Diagnostic VI (21:53)
[2024-10-20] MEDS ORDERED: DEXT50DI8 IV (21:53)
[2024-10-20] MEDS ORDERED: HYDR100V IV (21:53)
[2024-10-20] MEDS ORDERED: ACET650S13 RC (21:53)
== END 2024-10-20 | disposition short-term general hospital (02) | DRG 853 ==
LOC: ER 11:15 → CCU 18:29
PROVIDERS: ADMIT Nurse Practitioner Acute Care; ATTEND Nurse Practitioner Acute Care
PROC: 0D1N0Z4 Bypass Sigmoid Colon to Cutaneous, Open Approach (ICD-10-PCS; 2024-10-06)
PROC: 05HB33Z Insertion of Infusion Device into Right Basilic Vein, Percutaneous Approach (ICD-10-PCS; 2024-10-06)
PROC: 5A1955Z Respiratory Ventilation, Greater than 96 Consecutive Hours (ICD-10-PCS; 2024-10-06)
PROC: 0DBN0ZZ Excision of Sigmoid Colon, Open Approach (ICD-10-PCS; principal; 2024-10-06 19:30)
PROC: 02HV33Z Insertion of Infusion Device into Superior Vena Cava, Percutaneous Approach (ICD-10-PCS; 2024-10-07)
PROC: 30243R1 Transfusion of Nonautologous Platelets into Central Vein, Percutaneous Approach (ICD-10-PCS; 2024-10-09)
PROC: 06H033Z Insertion of Infusion Device into Inferior Vena Cava, Percutaneous Approach (ICD-10-PCS; 2024-10-12)
PROC: 30243N1 Transfusion of Nonautologous Red Blood Cells into Central Vein, Percutaneous Approach (ICD-10-PCS; 2024-10-13)
DX: A41.9 Sepsis, unspecified organism (principal); E43 Unspecified severe protein-calorie malnutrition; G92.8 Other toxic encephalopathy; L89.154 Pressure ulcer of sacral region, stage 4; L89.323 Pressure ulcer of left buttock, stage 3; N17.0 Acute kidney failure with tubular necrosis; R65.21 Severe sepsis with septic shock; J96.01 Acute respiratory failure with hypoxia; K57.21 Diverticulitis of large intestine with perforation and abscess with bleeding; K65.9 Peritonitis, unspecified; J69.0 Pneumonitis due to inhalation of food and vomit; E87.20 Acidosis, unspecified; L97.828 Non-pressure chronic ulcer of other part of left lower leg with other specified severity; L97.818 Non-pressure chronic ulcer of other part of right lower leg with other specified severity; G61.0 Guillain-Barre syndrome; J98.11 Atelectasis; D68.59 Other primary thrombophilia; I47.20 Ventricular tachycardia, unspecified; E66.9 Obesity, unspecified; Z86.16 Personal history of COVID-19; E11.22 Type 2 diabetes mellitus with diabetic chronic kidney disease; D69.59 Other secondary thrombocytopenia; I89.0 Lymphedema, not elsewhere classified; D23.72 Other benign neoplasm of skin of left lower limb, including hip; D23.71 Other benign neoplasm of skin of right lower limb, including hip; E88.09 Other disorders of plasma-protein metabolism, not elsewhere classified; E11.51 Type 2 diabetes mellitus with diabetic peripheral angiopathy without gangrene; I70.248 Atherosclerosis of native arteries of left leg with ulceration of other part of lower leg; I70.238 Atherosclerosis of native arteries of right leg with ulceration of other part of lower leg; R68.0 Hypothermia, not associated with low environmental temperature; I13.10 Hypertensive heart and chronic kidney disease without heart failure, with stage 1 through stage 4 chronic kidney disease, or unspecified chronic kidney disease; N18.9 Chronic kidney disease, unspecified; K21.9 Gastro-esophageal reflux disease without esophagitis; E83.42 Hypomagnesemia; T36.8X5A Adverse effect of other systemic antibiotics, initial encounter; E87.6 Hypokalemia; E86.9 Volume depletion, unspecified; K76.0 Fatty (change of) liver, not elsewhere classified; K80.20 Calculus of gallbladder without cholecystitis without obstruction; Z22.322 Carrier or suspected carrier of Methicillin resistant Staphylococcus aureus; E11.40 Type 2 diabetes mellitus with diabetic neuropathy, unspecified; I08.3 Combined rheumatic disorders of mitral, aortic and tricuspid valves; I27.22 Pulmonary hypertension due to left heart disease; E78.5 Hyperlipidemia, unspecified; Z68.34 Body mass index [BMI] 34.0-34.9, adult; Z86.718 Personal history of other venous thrombosis and embolism; Z99.3 Dependence on wheelchair; D50.0 Iron deficiency anemia secondary to blood loss (chronic)
CPT/HCPCS: 36415; 36569; 36600; 70450; 71045; 74018; 82330; 82803; 83605; 83690; 83735; 84100; 84443; 84478; 84484; 85025; 85730; 86140; 86850; 86900; 86901; 86920; 87040; 87070; 87086; 93005; 93307; 94002; 94003; 94760; 99082-TC; A4606; A4649; A4663; A6209; G0378; J0612; J1171; J1450; J1644; J1720; J1815; J1938; J2185; J2250; J2270; J2470; J2543; J2765; J3010; J3370; J3475; J3480; J3490; J7040; J7042; J7050; J7060; J7070; J7131; P9016; P9035; P9045; P9047; Q9963